=== PATIENT | male | born 1960 | race Caucasian/White ===

== ENCOUNTER 2016-08-20 09:46 | Emergency (ER) | payer MEDICAID ==
[~2016-08-20] VITALS: Ht 162.6 cm; Wt 64.0 kg
[~2016-08-20 09:46] MED LIST: ACET-2619 GT; BISA10SU27 RC; ESOM40PK GT; GLYC1TAB GT; LEVO0.173 GT; METO-460 GT; MIRABULK GT; [UNRECOGNIZED DRUG - CODE] GT
--- NOTE | 2016-08-20 09:46 | NUR ---
Patient BIBA to bed 5 at this time.
[2016-08-20 09:56] VITALS: BP 111/94
--- NOTE | 2016-08-20 10:00 | NUR ---
PT BIB EMS FROM [facility] WITH C/O COUGH CX 2 DAYS, WORSENING TODAY, PT BIB EMS WITH CONTINOUS [place] TX ALBUTEROL/ATROVENT, COUGH, GTUBE; STAVE MILL HAND DENIES N/V/D; SKIN IS PINK/WARM/DRY; AAOX4 WITH EVEN AND STEADY GAIT; LUNGS BL RHONCHI; HR EVEN AND REGULAR; PT DENIES ANY FEVER, OR CP AT THIS TIME; PATIENT STATES PAIN OF 0/10 AT THIS TIME; VSS; PATIENT POSITIONED FOR COMFORT; HOB ELEVATED; BEDRAILS UP X2; BED DOWN. ER MD MADE AWARE OF PT STATUS.
[2016-08-20] MEDS ORDERED: NACL 0.9% 1,000 ML IV SCH (10:03)
[2016-08-20] MEDS ORDERED: ALBUTEROL 0.083% 2.5 MG/3 ML NEBU INH ONE (10:15)
[2016-08-20] MEDS ORDERED: IPRATROPIUM 0.02% 0.5 MG/2.5 ML NEBU INH ONE (10:15)
[2016-08-20] MEDS ORDERED: NACL 0.9% 1,000 ML IV ONE ×2 (10:20→14:20)
[2016-08-20] MEDS ORDERED: PRO5 GT (10:29)
[2016-08-20] MEDS ORDERED: SYN.1 GT (10:29)
[2016-08-20] MEDS ORDERED: MULT9LIQ6 GT (10:29)
[2016-08-20 10:42] LABS: HEMATOCRIT 42.6 % (36-52); HEMOGLOBIN 13.7 g/dL (12.0-18.0); MEAN CORPUSCULAR HEMOGLOBIN 26 pg (27-31); MEAN CORPUSCULAR HGB CONC 32 g/dL (33-37); MEAN CORPUSCULAR VOLUME 82 fL (80-94); WHITE BLOOD COUNT (AUTO) 14.8 K/uL (4.8-10.8)
[2016-08-20 10:43] LABS: PLATELET COUNT (AUTO) 240 K/uL (140-450); RED CELL DISTRIBUTION WIDTH 14.8 % (11.6-13.7)
[2016-08-20 10:49] LABS: AMYLASE 48 U/L (25-115); ANION GAP 12.1 (8-16); CALCIUM 8.6 mg/dL (8.5-10.1); CARBON DIOXIDE 30.7 mmol/L (21-32); CREATININE 0.9 mg/dL (0.6-1.3); LIPASE 152 U/L (73-393); POTASSIUM 3.8 mmol/L (3.5-5.1)
[2016-08-20 10:51] LABS: BAND % (MANUAL) 2 % (0-8); EOSINOPHILS % (MANUAL) 1 % (0-4); LYMPHOCYTES % (MANUAL) 8 % (20-46); MONOCYTES % (MANUAL) 3 % (5-12); NEUTROPHILS % (MANUAL) 86 (43-65)
[2016-08-20 10:52] LABS: PLATELET ESTIMATE ADEQUATE
[2016-08-20 10:53] LABS: PARTIAL THROMBOPLASTIN TIME 24.3 secs (22-35.6); PROTHROMBIN TIME 9.9 secs (10.8-13.4)
--- NOTE | 2016-08-20 10:56 | NUR ---
ADMITTING DX: CONGESTION LOC AWAKE DOWNS SYNDROME LIFT MECHANIC ANDREINA AT BEDSIDE EDUCATION PROVIDED TO PATIENT AND LIFT MECHANIC WITH ACKNOWLEDGEMENT ON HHN THERAPY AND RESPIRATORY DRUGS HHN THERAPY GIVEN ORDERED STRONG MOIST NPC DURING THERAPY TOLERATED HHN THERAPY WELL WITHOUT INCIDENT PLACED PATIENT BACK ON SUPPLEMENTAL OXYGEN AT 2 LPM VIA NC
[2016-08-20 11:05] LABS: ALBUMIN 3.6 g/dL (3.4-5.0); TOTAL BILIRUBIN 0.4 mg/dL (0.0-1.0); TOTAL PROTEIN, SERUM 7.9 g/dL (6.4-8.2)
[2016-08-20 11:08] LABS: LACTIC ACID 3.8 mmol/L (0.4-2.0)
--- NOTE | 2016-08-20 11:19 | NUR ---
DR VAZQUEZ NOTIFIED OF LACTIC ACID 3.8, FLUIDS ORDERED AND GIVEN
[2016-08-20] MEDS ORDERED: cefTRIAXone 1,000 MG VIAL ONE (11:26)
[2016-08-20 11:29] LABS: APPEARANCE,URINE CLEAR (CLEAR); BILIRUBIN,URINE NEGATIVE (NEGATIVE); BLOOD, URINE NEGATIVE (NEGATIVE); COLOR,URINE YELLOW (YELLOW); LEUKOCYTE ESTERASE ,URINE NEGATIVE (NEGATIVE); NITRITE, URINE NEGATIVE (NEGATIVE); PH,URINE 6.5 (5.0-9.0); PROTEIN,URINE NEGATIVE (NEGATIVE); UGLUCOSE NEGATIVE (NEGATIVE); UROBILINOGEN,URINE 0.2 EU/dL (0.2 - 1)
[2016-08-20 16:16] VITALS: BP 119/80
--- NOTE | 2016-08-20 16:16 | NUR ---
Patient discharged with v/s stable. Written and verbal after care instructions given and explained. Patient alert, oriented and verbalized understanding of instructions. Wheel Chair Assisted with by caregiver. All questions addressed prior to discharge. ID band removed. Patient advised to follow up with PMD. Rx of ZITHROMAX, ALBUTEROL given. Patient educated on indication of medication including possible reaction and side effects. Opportunity to ask questions provided and answered.
== END 2016-08-20 16:16 | disposition home or self-care (01) ==
LOC: MED 09:46
DX: J40 Bronchitis, not specified as acute or chronic (principal); E11.9 Type 2 diabetes mellitus without complications; K21.9 Gastro-esophageal reflux disease without esophagitis; E03.5 Myxedema coma
CPT/HCPCS: 36415; 71010; 80053; 81003; 82150; 82553; 82948; 83605; 83690; 83880; 84484; 85025; 85379; 85610; 85730; 87040; 87086; 93005; 94640; 96361; 96365; 99285; J0696; J7030; J7060; J7613; J7644; Q0092; C1758

== ENCOUNTER 2018-05-17 12:35 | Inpatient (IN) | payer MEDICAID ==
[~2018-05-17] VITALS: Ht 175.3 cm; Wt 78.0 kg
[~2018-05-17 12:35] MED LIST changes: +BACTO TP; +CHLO118S2 TP; +LACT10CA GT; -LEVO0.173 GT; +MULT9LIQ6 GT; +NITR100C15 GT; +PHEN-1901 GT; +PRO5 GT; +SYN.1 GT; +ZGUARD TP
--- NOTE | 2018-05-17 12:35 | NUR ---
PATIENT TO BED#11 BY PARAMEDICS.
[2018-05-17 12:42] VITALS: BP 103/47
--- NOTE | 2018-05-17 12:53 | NUR ---
PATIENT PRESENTS TO ED WITH brought in by ems from a boarding home c/o fever x 3 days--pt unable to verbalized severe mental delay .; SKIN IS PINK/hot/DRY;;diminished breath sounds; HR EVEN AND REGULAR; PT PATIENT STATES PAIN OF 0/10 AT THIS TIME; VSS; PATIENT POSITIONED FOR COMFORT; HOB ELEVATED; BEDRAILS UP X2; BED DOWN. ER MD MADE AWARE OF PT STATUS.
[2018-05-17] MEDS ORDERED: NACL 0.9% 2,000 ML IV SCH (13:00)
[2018-05-17] MEDS ORDERED: PIPERACILLIN/TAZOBACTAM 3.375 GM in DEXT 5% MINI-BAG PLUS 50 ML IV ONE (13:00)
[2018-05-17] MEDS ORDERED: ALBUTEROL SULFATE/IPRATROPIU 3 ML SOL IH ONE (13:05)
--- NOTE | 2018-05-17 13:19 | NUR ---
rt at bedside--collected vbg breathing treatment initiated---lab collecting samples cxr at bedside
[2018-05-17] MEDS ORDERED: ONDA8TAB GT (13:33)
[2018-05-17] MEDS ORDERED: ALBU4TAB21 GT (13:33)
[2018-05-17] MEDS ORDERED: CARB15DR61 OT (13:33)
[2018-05-17] MEDS ORDERED: NA P133N1 RC (13:33)
[2018-05-17] MEDS ORDERED: [UNRECOGNIZED DRUG - CODE] GT (13:33)
[2018-05-17] MEDS ORDERED: RANI-485 GT (13:33)
[2018-05-17 13:36] LABS: BASOPHILS % (AUTO) 0.1 % (0.0-2.0); HEMATOCRIT 39.6 % (36-52); HEMOGLOBIN 12.7 g/dL (12.0-18.0); LYMPHOCYTES # (AUTO) 0.6 K/uL (2.0-11.5); LYMPHOCYTES % (AUTO) 3.1 % (20.5-51.1); MEAN CORPUSCULAR HEMOGLOBIN 28 pg (27-31); MEAN CORPUSCULAR HGB CONC 32 g/dL (33-37); MEAN CORPUSCULAR VOLUME 86.4 fL (80-94); MONOCYTES # (AUTO) 1.2 K/uL (0.8-1.0); MONOCYTES % (AUTO) 6.1 % (1.7-9.3); NEUTROPHILS # (AUTO) 17.6 K/uL (1.8-7.7); NEUTROPHILS % (AUTO) 90.7 % (42.2-75.2); PLATELET COUNT (AUTO) 148 K/uL (140-450); RED BLOOD CELL COUNT(AUTO) 4.58 MIL/uL (4.20-6.10); RED CELL DISTRIBUTION WIDTH 15.1 % (11.6-13.7); WHITE BLOOD COUNT (AUTO) 19.4 K/uL (4.8-10.8)
[2018-05-17 13:42] LABS: APPEARANCE,URINE HAZY (CLEAR); BILIRUBIN,URINE NEGATIVE (NEGATIVE); BLOOD, URINE TRACE-I (NEGATIVE); COLOR,URINE YELLOW (YELLOW); LEUKOCYTE ESTERASE ,URINE 1+ (NEGATIVE); NITRITE, URINE NEGATIVE (NEGATIVE); PH,URINE 6.5 (5.0-9.0); UGLUCOSE NEGATIVE (NEGATIVE)
[2018-05-17] MEDS ORDERED: PIPERACILLIN/TAZOBACTAM 3.375 GM VIAL IV ONE (13:42)
[2018-05-17 13:50] LABS: ACETONE, SERUM NEGATIVE (NEGATIVE)
[2018-05-17 13:51] LABS: ALBUMIN 3.2 g/dL (3.4-5.0); TOTAL BILIRUBIN 0.5 mg/dL (0.0-1.0)
[2018-05-17 13:55] LABS: RBC,URINE 0-5 (RARE) /HPF (0-5); WBC,URINE 60-80 /HPF (0-5)
[2018-05-17 13:56] LABS: MAGNESIUM 1.8 mg/dL (1.8-2.4); PROTHROMBIN TIME 10.3 secs (10.8-13.4)
[2018-05-17] MEDS ORDERED: LORazepam 2 MG/ML VIAL IM/IVP PRN (15:10)
[2018-05-17] MEDS ORDERED: NACL 0.9% 1,000 ML IV SCH (15:10)
[2018-05-17] MEDS ORDERED: HYDROcodone/APAP 5/325 MG 1 TAB TAB GT PRN (15:10)
[2018-05-17] MEDS ORDERED: ONDANSETRON 4 MG/2 ML VIAL IM/IVP PRN (15:10)
[2018-05-17] MEDS ORDERED: INFLUENZA VIRUS VACCINE QUAD 0.5 ML SYR IMVAC PRN (15:10)
--- NOTE | 2018-05-17 15:37 | NUR ---
PT TAKEN TO TELE FLOOR BY RN PORFIRIO AND EMT VIRGIE
--- NOTE | 2018-05-17 15:40 | NUR ---
RECEIVED BEDSIDE REPORT FROM ER NURSE. PATIENT IS AWAKE, ALERT AND ORIENTEDX1. NO SIGNS OF DISTRESS ON RA. PT IS APHASIC. [facility] REP PRESENT AT BEDSIDE. MRSA NARES DONE. VITALS WITHIN NORMAL LIMITS. PATIENT IS NOT AMBULATORY BUT TRANSFERS TO CHAIR WITH ASSISTANCE. FALL RISK PROTOCOL IN PLACE. SKIN INTACT. G-TUBE IN PLACE. FLUSHING WELL. IV ON L HAND 20G. CLEAN, DRY AND INTACT. BED IN LOW POSITION. CALL LIGHT WITHIN REACH. WILL CONTINUE TO MONITOR THE PATIENT.
--- NOTE | 2018-05-17 15:50 | NUR ---
Admited to Tele. Transported via fatoumata w/ RN and EMT at bedside; safety measures in place. Will go to room 107B. Belongings list completed. Report to Sarah DANIELLE.
[2018-05-17 16:00] VITALS: BP 98/56
[2018-05-17 16:02] LABS: PHOSPHORUS 2.3 mg/dL (2.5-4.9); THYROID STIMULATING HORMONE 2.18 uIU/mL (0.34-3.74)
[2018-05-17] MEDS ORDERED: ALBUTEROL SULFATE/IPRATROPIU 3 ML SOL IH PRN (16:15)
[2018-05-17] MEDS ORDERED: SODIUM PHOSPHATE 118 ML ENEM RC PRN (16:40)
[2018-05-17] MEDS ORDERED: BISACODYL 10 MG SUPP RC PRN (16:40)
[2018-05-17] MEDS ORDERED: NUTRITIONAL SUPPLEMENT GT SCH (17:00)
[2018-05-17] MEDS ORDERED: ALBUTEROL 4 MG TAB GT SCH (17:00)
--- NOTE | 2018-05-17 17:12 | NUR ---
PT SLEEPING IN BED. NO SIGNS OF DISTRESS OR SOB NOTED. WILL CONTINUE TO ROUND FREQUENTLY. BED IN LOW POSITION, CALL LIGHT WITHIN REACH
[2018-05-17] MEDS: DEXT 5% / NACL 0.45% 1,000 ML IV SCH (18:35)
--- NOTE | 2018-05-17 18:49 | NUR ---
PER [facility] FARM EQUIPMENT MECHANIC APPRENTICE, PT IS RECEIVING NUTRIN 2.O FORMULA FEEDING THROUGH HIS G-TUBE. PT REP STATED THAT 1 AND 1/2 CANS ARE GIVEN IN THE MORNING, 1 CAN FOR LUNCH, AND 1 CAN FOR DINNER.
[2018-05-17] MEDS ORDERED: SODIUM PHOS / POTASSIUM PHOS 1 PKT PDR GT SCH (19:00)
--- NOTE | 2018-05-17 19:10 | NUR ---
PLACED PT ON 2L NASAL CANNULA. SAO2 WAS 88% ON ROOM AIR. SAO2 93% ON 2L NASAL CANNULA.
--- NOTE | 2018-05-17 19:12 | NUR ---
SPOKE WITH XENIA, NO BAKE MOLDER, ABOUT PT PO ALBUTEROL NOT BEING AVAILABLE ON THE FLOOR. PER XENIA, MED IS NOT AVAILABLE IN PHARMACY.
--- NOTE | 2018-05-17 19:23 | NUR ---
ENDORSED PT TO PASTING MACHINE OPERATOR NURSE FOR CONTINUITY OF CARE. PT IN STABLE CONDITION AT THIS TIME.
[2018-05-17 19:57] VITALS: BP 98/46
[2018-05-17] MEDS: ACETAMINOPHEN 325 MG TAB GT PRN (20:37)
[2018-05-17] MEDS: FAMOTIDINE 20 MG TAB GT SCH (20:37)
--- NOTE | 2018-05-17 20:37 | NUR ---
TEMP 100.4. REMOVED BLANKETS ,COOLING MEASURES DONE AND TYLENOL 650MG GT GIVEN. WILL CONTINUE TO MONITOR.
[2018-05-17] MEDS ORDERED: CARBAMIDE PEROXIDE 6.5% OT 15 ML BTL BOTH EARS SCH (21:00)
--- NOTE | 2018-05-17 21:40 | NUR ---
TEMP RECHECKED 99.7 . WILL CONTINUE TO MONITOR.
--- NOTE | 2018-05-17 23:05 | NUR ---
PT SLEEPING AT THIS TIE. NO S/S OF ANY DISCOMFORT NOTED. WILL CONTINUE TO MONITOR.
[2018-05-18] MEDS: DEXT 5% / NACL 0.45% 1,000 ML IV SCH ×2 (00:40→03:28)
[2018-05-18 00:45] VITALS: BP 91/54
--- NOTE | 2018-05-18 00:45 | NUR ---
LATEST TEMP 97.9 NO S/S OF ANY DISCOMFORT NOR PAIN NOTED. WILL CONTINUE TO MONITOR.
--- NOTE | 2018-05-18 01:30 | NUR ---
CALLED DR. GOTTLIEB REGARDING DIET ORDER FOR PT. SHE SAID SHE WILL ASKED THE AM RESIDENTS LATER .
--- NOTE | 2018-05-18 02:00 | NUR ---
WITH OCCASIONAL NON PRODUCTIVE COUGH. NO S/S OF ANY DISTRESS NOTED.
[2018-05-18 03:40] VITALS: BP 92/53
--- NOTE | 2018-05-18 04:00 | NUR ---
@2200 RN ENDOSCOPY FOUND TO HAVE REDNESS AND EXCORIATION ON RT SIDE OF THE SCROTUM.INCONTINENT DERMATITIS. JUST TOOK PICTURE AT THIS TIME. DR. GOTTLIEB,RESIDENT MD MADE AWARE. WILL ORDER CREAM.
[2018-05-18] MEDS ORDERED: Z-GUARD PASTE TP PRN ×2 (04:35→08:46)
--- NOTE | 2018-05-18 05:40 | NUR ---
GT FEEDING STARTED WITH VITAL AF 1.2 AT 10ML /HR , ADVANCE 10ML Q4HRS , GOAL 40 ML /HR. WATER FLUSH 100ML Q4HR. Addendum: 05/18/18 at 0742 by Lillian Booth RN GT FEEDING STARTED AT 0640.
--- NOTE | 2018-05-18 06:12 | NUR ---
PATIENT HAS BEEN SCREENED AND CATEGORIZED LOW NUTRITION RISK. PATIENT WILL BE SEEN WITHIN 7 DAYS OF ADMISSION. 05/24/18 MARIAH KUMAR MS, RDN Addendum: 05/18/18 at [address] CORRECTION: PT HAS BEEN SCREENED AND CATEGORIZED HIGH NUTRITION RISK. PT WILL BE SEEN WITHIN 1-2 DAYS OF ADMISSION 05/18/18-05/19/18 MARIAH KUMAR MS, RDN
[2018-05-18] MEDS: GLYCOPYRROLATE 1 MG TAB GT SCH ×2 (06:19→16:12)
[2018-05-18] MEDS: LEVOTHYROXINE 0.025 MG, LEVOTHYROXINE 0.1 MG GT SCH ×2 (06:19)
--- NOTE | 2018-05-18 07:15 | NUR ---
ENDORSED PT IN STABLE CONDITION TO AM NURSE.
--- NOTE | 2018-05-18 07:23 | NUR ---
RECEIVED BEDSIDE REPORT FROM INDUSTRIAL ENGINEERING ANALYST RN CHRISTOPHE. PATIENT IS AWAKE, ALERT AND ORIENTEDX1. NO SIGNS OF DISTRESS ON RA. PT IS APHASIC. VITALS WITHIN NORMAL LIMITS FOR PT. PATIENT IS NOT AMBULATORY BUT TRANSFERS TO CHAIR WITH ASSISTANCE. FALL RISK PROTOCOL IN PLACE. SKIN INTACT. G-TUBE IN PLACE. FLUSHING WELL. IV SITE BLEEDING. IV WAS DISLODGED. WILL INSERT NEW IV. BED IN LOW POSITION. CALL LIGHT WITHIN REACH. WILL CONTINUE TO MONITOR THE PATIENT.
[2018-05-18 07:26] LABS: BASOPHILS % (AUTO) 0.1 % (0.0-2.0); EOSINOPHILS % (AUTO) 0.2 % (0.0-4.0); HEMATOCRIT 36.2 % (36-52); HEMOGLOBIN 11.6 g/dL (12.0-18.0); LYMPHOCYTES # (AUTO) 1.1 K/uL (2.0-11.5); LYMPHOCYTES % (AUTO) 7.7 % (20.5-51.1); MEAN CORPUSCULAR HEMOGLOBIN 28 pg (27-31); MEAN CORPUSCULAR HGB CONC 32 g/dL (33-37); MEAN CORPUSCULAR VOLUME 86.4 fL (80-94); MONOCYTES % (AUTO) 6.6 % (1.7-9.3); NEUTROPHILS # (AUTO) 12.7 K/uL (1.8-7.7); NEUTROPHILS % (AUTO) 85.4 % (42.2-75.2); PLATELET COUNT (AUTO) 126 K/uL (140-450); RED BLOOD CELL COUNT(AUTO) 4.19 MIL/uL (4.20-6.10); RED CELL DISTRIBUTION WIDTH 14.9 % (11.6-13.7); WHITE BLOOD COUNT (AUTO) 14.8 K/uL (4.8-10.8)
[2018-05-18 07:39] LABS: ANION GAP 7.7 (8-16); CREATININE 0.8 mg/dL (0.7-1.3); POTASSIUM 3.7 mmol/L (3.5-5.1)
[2018-05-18 07:46] LABS: CHOL/HDL RATIO 1.8 (1-4.5)
[2018-05-18 07:47] LABS: MAGNESIUM 1.7 mg/dL (1.8-2.4); PHOSPHORUS 1.9 mg/dL (2.5-4.9)
[2018-05-18 08:00] VITALS: BP 94/54
[2018-05-18] MEDS ORDERED: MAGNESIUM OXIDE 400 MG TAB GT ONE (08:40)
[2018-05-18] MEDS ORDERED: HYDRAGUARD CREAM TP PRN (08:40)
[2018-05-18] MEDS: NACL 0.9% 1,000 ML IV SCH ×2 (08:50→16:09)
--- NOTE | 2018-05-18 08:56 | NUR ---
INSERTED NEW IV FOR PT. NEW IV SITE IS LEFT FA 22 G. PATENT AND INTACT AND FLUSHING WELL.
[2018-05-18] MEDS ORDERED: FERROUS GLUC GT SCH (09:00)
[2018-05-18] MEDS ORDERED: SODIUM PHOS / POTASSIUM PHOS 1 PKT PDR GT SCH (09:00)
[2018-05-18] MEDS ORDERED: Z-GUARD PASTE TP SCH (09:00)
[2018-05-18] MEDS ORDERED: MAGNESIUM OXIDE 400 MG TAB GT SCH (09:00)
[2018-05-18] MEDS ORDERED: LEVOTHYROXINE 0.1 MG TAB GT SCH (09:00)
[2018-05-18] MEDS ORDERED: MULTIVIT MINERALS GT SCH (09:00)
[2018-05-18] MEDS ORDERED: [UNRECOGNIZED DRUG - OTHER] GT SCH (09:00)
--- NOTE | 2018-05-18 09:52 | NUR ---
PT SLEEPING IN BED. NO SIGNS OF DISTRESS OR SOB NOTED. WILL CONTINUE TO ROUND FREQUENTLY. BED IN LOW POSITION, CALL LIGHT WITHIN REACH
[2018-05-18] MEDS: FAMOTIDINE 20 MG TAB GT SCH ×2 (10:13→20:45)
[2018-05-18] MEDS: MULTIVITAMIN/MINERALS 1 TAB GT SCH (10:13)
--- NOTE | 2018-05-18 10:28 | NUR ---
(05/18/18) RD INITIAL ASSESSMENT COMPLETED PLEASE REFER TO NUTRITION ASSESSMENT UNDER CARE ACTIVITY FOR ESTIMATED NUTRITIONAL NEEDS. RD RECOMMENDATIONS: 1. CONTINUE ON VITAL AF 1.2. 2. CONTINUE TO INCREASE BY 10 ML Q4H TOLERATED UNTIL GOAL RATE OF 40 ML/HR IS REACHED. 3. IF PATIENT CONTINUES TO TOLERATE ENTERAL FEEDINGS & REACHES GOAL RATE OF 40 ML/HR, CONSIDER INCREASING GOAL RATE TO 55 ML/HR TO BETTER MEET EST KCAL NEEDS. (AT 55 ML/HR, TF WILL PROVIDE 1320 ML, 1584 KCAL, 99 GM PROTEIN, AND 1070 ML FREE WATER TO MEETING 80% EST KCAL AND > 100% EST PROTEIN NEEDS). 4. RD WILL F/U 2-3 DAYS; HIGH RISK. JAZZMINE KUMAR, MS, RDN
--- NOTE | 2018-05-18 11:20 | NUR ---
PT RESTING IN BED. NO SIGNS OF DISTRESS OR SOB NOTED. WILL CONTINUE TO ROUND FREQUENTLY. BED IN LOW POSITION, CALL LIGHT WITHIN REACH
[2018-05-18] MEDS: Z-GUARD PASTE TP SCH ×2 (11:31→20:45)
[2018-05-18 12:00] VITALS: BP 92/54
--- NOTE | 2018-05-18 13:02 | NUR ---
PT SLEEPING IN BED. NO SIGNS OF DISTRESS OR SOB NOTED. WILL CONTINUE TO ROUND FREQUENTLY. BED IN LOW POSITION, CALL LIGHT WITHIN REACH. ALL NEEDS MET AT THIS TIME.
[2018-05-18] MEDS: HYDRAGUARD CREAM TP SCH (14:47)
[2018-05-18 16:00] VITALS: BP 109/54
[2018-05-18] MEDS: ACETAMINOPHEN 325 MG TAB GT PRN (16:12)
[2018-05-18] MEDS: ALBUTEROL SULFATE/IPRATROPIU 3 ML SOL IH SCH ×2 (16:12→18:40)
--- NOTE | 2018-05-18 16:12 | NUR ---
PT EXPERIENCING FEVER OF 100.6. TYLENOL GIVEN. WILL REASSESS FOR MED EFFECTIVENESS.
--- NOTE | 2018-05-18 16:12 | NUR ---
CALLED TO PTS ROOM FOR 1300 BREATHING TX. PTS TXS WERE PRN THE CHANGE WAS MADE BY DR. VASQUEZ AND PHARMACY DID NOT NOTIFIED RESPIRATORY OF CHANGES MADE. PT IS VERY COMBATIVE WOULD NOT ALLOW RT TO PLACE PULSE OX ON FINGER WAS TRYING TO HIT AND LOLIS BARDALES AT BEDSIDE NO TX WAS GIVEN
--- NOTE | 2018-05-18 19:32 | NUR ---
RECEIVED REPORT FROM DAY SHIFT FROM DAY SHIFT NURSE, CATIA AT PT BEDSIDE. PT IS AWAKE AND APHASIAC. PT IS ON RA WITH RESPIRATIONS EVEN AND UNLABORED. IV ACCESS IN L FA 22G WITH IVF RUNNING PER MD ORDERS. IV IS PATENT AND INTACT. PT HAS REDNESS TO SCROTAL AREA BUT SKIN IS INTACT. PT HAS G-TUBE WITH VITAL AF FEEDING INFUSING 40ML/HR WITH 100ML H20 FLUSH Q4H. FLACC-0. BED IS LOCKED, LOW POSITION WITH SIDE RAILS UP X2. CALL LIGHT IS WITHIN REACH. BOARD UPDATED. WILL CONTINUE TO MONITOR.
--- NOTE | 2018-05-18 19:55 | NUR ---
ENDORSED PT TO NON PROFIT DIRECTOR RADHA CONTINUITY OF CARE. PT IN STABLE CONDITION.
[2018-05-18 20:00] VITALS: BP 88/48
--- NOTE | 2018-05-18 20:52 | NUR ---
RESIDUALS CHECKED, 5ML. ADMINISTERED SCHEDULED MEDICATION. PT HAD SM BM. PT CHANGED, CLEANED AND TURNED. Z-GUARD APPLIED. PT TOLERATED WELL. NO SIGNS OR SYMPTOMS OF DISTRESS. WILL CONTINUE TO MONITOR.
--- NOTE | 2018-05-18 23:32 | NUR ---
RESIDUALS CHECKED, 5ML. TUBE FEEDING INCREASED TO 50ML/HR PER ORDERS. PT HAS NO SIGNS OR SYMPTOMS OF DISTRESS. FLACC-0. WILL CONTINUE TO MONITOR.
[2018-05-19] VITALS: BP 98/55
[2018-05-19] MEDS: HYDRAGUARD CREAM TP SCH ×2 (00:34→13:33)
--- NOTE | 2018-05-19 01:50 | NUR ---
PT RESTING COMFORTABLY IN BED. FLACC-0. NO S/S OF DISTRESS. WILL CONTINUE TO MONITOR.
[2018-05-19] MEDS: ACETAMINOPHEN 325 MG TAB GT PRN ×2 (04:23→17:23)
--- NOTE | 2018-05-19 04:23 | NUR ---
TEMPERATURE 100.5, TYLENOL GIVEN. PT WOULD NOT ALLOW ME TO TAKE ANY OTHER VITAL SIGNS AND BECAME AGITATED. RESIDUALS CHECKED, 0ML. TUBE FEEDING INCREASED TO GOAL RATE OF 55ML/HR PER MD ORDERS. PT HAS NO S/S OF DISTRESS. WILL CONTINUE TO MONITOR.
[2018-05-19] MEDS: NACL 0.9% 1,000 ML IV SCH ×2 (04:28→17:24)
--- NOTE | 2018-05-19 05:00 | NUR ---
NEW TUBE FEEDING STARTED. TEMPERATURE NOW 99.7. FLACC-0. NO S/S OF DISTRESS. WILL CONTINUE TO MONITOR.
[2018-05-19] MEDS: ALBUTEROL SULFATE/IPRATROPIU 3 ML SOL IH SCH ×4 (06:27→18:53)
[2018-05-19] MEDS: GLYCOPYRROLATE 1 MG TAB GT SCH ×2 (06:33→17:22)
[2018-05-19] MEDS: LEVOTHYROXINE 0.025 MG, LEVOTHYROXINE 0.1 MG GT SCH ×2 (06:33)
--- NOTE | 2018-05-19 06:33 | NUR ---
ADMINISTERED SCHEDULED MEDICATIONS. PT TOLERATED WELL. NO S/S OF DISTRESS. WILL CONTINUE TO MONITOR.
--- NOTE | 2018-05-19 07:24 | NUR ---
ENDORSED PT TO DAY SHIFT NURSE FOR CONTINUITY OF CARE. PT IN STABLE CONDITION.
--- NOTE | 2018-05-19 07:30 | NUR ---
RECEIVED PT ON BED AWAKE, ALERT, APHASIC, CONFUSED, HX MENTAL RETARDATION/CEREBRAL PALSY. NO SOB NOTED, NO SIGN SIGNS OF PAIN. IV TO LT FOREARM PATENT AND INTACT. CHEST, DIMINISHED AIR ENTRY TO THE BASES. ABDOMEN SOFT, BOWEL SOUNDS PRESENT, WITH G-TUBE IN PLACE, RESIDUAL 10 MLS NOTED. SCD'S IN PLACE. BED ON LOWEST POSITION, BED ALARM ON, CALL LIGHT WITHIN REACH. WILL REPOSITION PT EVERY 2 HRS.
[2018-05-19 07:34] LABS: ANION GAP 11.7 (8-16); CREATININE 0.7 mg/dL (0.7-1.3); MAGNESIUM 1.7 mg/dL (1.8-2.4); PHOSPHORUS 2.4 mg/dL (2.5-4.9); POTASSIUM 3.7 mmol/L (3.5-5.1)
[2018-05-19] MEDS ORDERED: SODIUM PHOS / POTASSIUM PHOS 1 PKT PDR PO SCH (07:57)
[2018-05-19 08:00] VITALS: BP 96/58
[2018-05-19] MEDS ORDERED: MAG SULF 2000 MG/WATER PREMIX 50 ML IV SCH (08:00)
[2018-05-19 08:49] LABS: BASOPHILS % (AUTO) 0.4 % (0.0-2.0); EOSINOPHILS # (AUTO) 0.1 K/uL (0-0.4); EOSINOPHILS % (AUTO) 1.6 % (0.0-4.0); HEMATOCRIT 34.6 % (36-52); HEMOGLOBIN 11.3 g/dL (12.0-18.0); LYMPHOCYTES # (AUTO) 0.8 K/uL (2.0-11.5); LYMPHOCYTES % (AUTO) 11.4 % (20.5-51.1); MEAN CORPUSCULAR HEMOGLOBIN 28 pg (27-31); MEAN CORPUSCULAR HGB CONC 33 g/dL (33-37); MEAN CORPUSCULAR VOLUME 86.2 fL (80-94); MONOCYTES # (AUTO) 0.5 K/uL (0.8-1.0); MONOCYTES % (AUTO) 6.7 % (1.7-9.3); NEUTROPHILS # (AUTO) 5.9 K/uL (1.8-7.7); NEUTROPHILS % (AUTO) 79.9 % (42.2-75.2); PLATELET COUNT (AUTO) 109 K/uL (140-450); RED BLOOD CELL COUNT(AUTO) 4.01 MIL/uL (4.20-6.10); RED CELL DISTRIBUTION WIDTH 14.7 % (11.6-13.7); WHITE BLOOD COUNT (AUTO) 7.4 K/uL (4.8-10.8)
[2018-05-19] MEDS ORDERED: POLYETHYLENE GLYCOL 17 GM/PKT GT SCH (09:00)
--- NOTE | 2018-05-19 09:45 | NUR ---
SCHEDULED MEDS GIVEN THRU G-TUBE, GASTRIC RESIDUAL 15 MLS NOTED. G-FEEDING AND MEDICATIONS TOLERATED WELL.
[2018-05-19] MEDS: FAMOTIDINE 20 MG TAB GT SCH ×2 (09:47→20:50)
[2018-05-19] MEDS: MULTIVITAMIN/MINERALS 1 TAB GT SCH (09:47)
[2018-05-19] MEDS: Z-GUARD PASTE TP SCH ×2 (09:48→20:51)
--- NOTE | 2018-05-19 11:00 | NUR ---
JIM, INSULATING MACHINE OPERATOR OF PT'S BOARD AND CARE CAME TO VISIT, NOTIFIED WITH PT'S PLAN OF CARE. VERBALIZED UNDERSTANDING.
--- NOTE | 2018-05-19 15:28 | NUR ---
CM NOTE CHART REVIEW DONE
[2018-05-19 16:00] VITALS: BP 104/60
--- NOTE | 2018-05-19 17:00 | NUR ---
PT TOLERATED G-TUBE FEEDING WELL. GASTRIC RESIDUAL 10-15 MLS NOTED.
--- NOTE | 2018-05-19 19:00 | NUR ---
PT AWAKE. NO SOB NOTED. NO SIGNS OF PAIN. ENDORSED TO NEXT SHIFT NURSE FOR CONTINUITY OF CARE.
--- NOTE | 2018-05-19 19:30 | NUR ---
RECEIVED REPORT FROM DAY SHIFT FROM DAY SHIFT NURSEBALAJI AT PT BEDSIDE. PT IS AWAKE AND APHASIAC. PT IS ON RA WITH RESPIRATIONS EVEN AND UNLABORED. IV ACCESS IN L FA 22G WITH IVF RUNNING PER MD ORDERS. IV IS PATENT AND INTACT. PT HAS REDNESS TO SCROTAL AREA BUT SKIN IS INTACT. PT HAS G-TUBE WITH VITAL AF FEEDING INFUSING 55ML/HR WITH 100ML H20 FLUSH Q4H. FLACC-0. BED IS LOCKED, LOW POSITION WITH SIDE RAILS UP X2. CALL LIGHT IS WITHIN REACH. BOARD UPDATED. WILL CONTINUE TO MONITOR.
--- NOTE | 2018-05-19 20:51 | NUR ---
ADMINISTERED SCHEDULED MEDICATIONS. RESIDUALS CHECKED, 5ML. PT RESTING COMFORTABLY IN BED. NO SIGNS OR SYMPTOMS OF DISTRESS. WILL CONTINUE TO MONITOR.
[2018-05-20] VITALS: BP 103/67
--- NOTE | 2018-05-20 00:11 | NUR ---
VS WNL. PT ASLEEP IN BED. NO SIGNS OR SYMPTOMS OF DISTRESS. WILL CONTINUE TO MONITOR.
[2018-05-20] MEDS: HYDRAGUARD CREAM TP SCH ×2 (01:08→13:00)
--- NOTE | 2018-05-20 01:35 | NUR ---
RESIDUALS CHECKED, 0ML. NEW BOTTLE OF TUBE FEEDING STARTED.
[2018-05-20] MEDS: NACL 0.9% 1,000 ML IV SCH (02:00)
--- NOTE | 2018-05-20 02:00 | NUR ---
NEW BAG OF IVF STARTED.
[2018-05-20] MEDS: ALBUTEROL SULFATE/IPRATROPIU 3 ML SOL IH SCH ×3 (05:17→13:00)
[2018-05-20] MEDS: GLYCOPYRROLATE 1 MG TAB GT SCH (06:31)
[2018-05-20] MEDS: LEVOTHYROXINE 0.025 MG, LEVOTHYROXINE 0.1 MG GT SCH ×2 (06:31)
--- NOTE | 2018-05-20 06:31 | NUR ---
ADMINISTERED SCHEDULED MEDICATIONS. PT TOLERATED WELL. NO SIGNS OR SYMPTOMS OF DISTRESS. WILL CONTINUE TO MONITOR.
--- NOTE | 2018-05-20 06:47 | NUR ---
pt combative would no allow for assessment or breathing tx was trying to hit rt. notified elvia green concerning pt no hhn given pt was not in any distress at this time
--- NOTE | 2018-05-20 07:24 | NUR ---
ENDORSED PT TO DAY SHIFT NURSE FOR CONTINUITY OF CARE. PT IN STABLE CONDITION.
--- NOTE | 2018-05-20 07:30 | NUR ---
RECEIVED PT ON BED AWAKE, ALERT, APHASIC, CONFUSED, HX MENTAL RETARDATION/CEREBRAL PALSY. NO SOB NOTED, NO SIGNS OF PAIN AT THIS TIME. IV TO LT FOREARM PATENT AND INTACT. CHEST, DIMINISHED AIR ENTRY TO THE BASES. ABDOMEN SOFT, BOWEL SOUNDS PRESENT, WITH G-TUBE IN PLACE, RESIDUAL 10-15 MLS NOTED. SCD'S IN PLACE. BED ON LOWEST POSITION, BED ALARM ON, CALL LIGHT WITHIN REACH. WILL REPOSITION PT EVERY 2 HRS.
[2018-05-20 08:00] VITALS: BP 103/65
--- NOTE | 2018-05-20 09:00 | NUR ---
PT RESTING. NO SOB NOTED. NO SIGNS OF PAIN.
[2018-05-20] MEDS: Z-GUARD PASTE TP SCH (09:18)
[2018-05-20] MEDS: FAMOTIDINE 20 MG TAB GT SCH (09:18)
[2018-05-20] MEDS: MULTIVITAMIN/MINERALS 1 TAB GT SCH (09:18)
--- NOTE | 2018-05-20 10:55 | NUR ---
DISCHARGE PHOTO TAKEN AND DOCUMENTED.
[2018-05-20] MEDS ORDERED: LACT10CA1 GT (11:00)
[2018-05-20] MEDS ORDERED: SULF-59 PO (11:00)
[2018-05-20 11:21] LABS: BASOPHILS % (AUTO) 0.6 % (0.0-2.0); EOSINOPHILS # (AUTO) 0.1 K/uL (0-0.4); EOSINOPHILS % (AUTO) 3.5 % (0.0-4.0); HEMATOCRIT 36.2 % (36-52); HEMOGLOBIN 11.7 g/dL (12.0-18.0); LYMPHOCYTES # (AUTO) 0.7 K/uL (2.0-11.5); LYMPHOCYTES % (AUTO) 16.8 % (20.5-51.1); MEAN CORPUSCULAR HEMOGLOBIN 28 pg (27-31); MEAN CORPUSCULAR HGB CONC 32 g/dL (33-37); MEAN CORPUSCULAR VOLUME 85.9 fL (80-94); MONOCYTES # (AUTO) 0.4 K/uL (0.8-1.0); MONOCYTES % (AUTO) 10.7 % (1.7-9.3); NEUTROPHILS # (AUTO) 2.7 K/uL (1.8-7.7); NEUTROPHILS % (AUTO) 68.4 % (42.2-75.2); PLATELET COUNT (AUTO) 135 K/uL (140-450); RED BLOOD CELL COUNT(AUTO) 4.21 MIL/uL (4.20-6.10); RED CELL DISTRIBUTION WIDTH 14.6 % (11.6-13.7)
[2018-05-20 11:32] LABS: ANION GAP 11.2 (8-16); CARBON DIOXIDE 28.9 mmol/L (21-32); CREATININE 0.7 mg/dL (0.7-1.3); POTASSIUM 4.1 mmol/L (3.5-5.1)
[2018-05-20 11:40] LABS: MAGNESIUM 1.9 mg/dL (1.8-2.4); PHOSPHORUS 2.6 mg/dL (2.5-4.9)
--- NOTE | 2018-05-20 11:55 | NUR ---
CALLED JIM -CHANGE MANAGEMENT FACILITATOR OF [facility] [facility], NOTIFIED OF THE DISCHARGE ORDER. JIM STATED PT WILL BE PICKED UP LATER THIS AFTERNOON. SHE STATED SHE WILL CALL ME BACK FOR THE ETA.
[2018-05-20 12:00] VITALS: BP 101/56
--- NOTE | 2018-05-20 13:31 | NUR ---
PT COMBATIVE WOULD NOT ALLOW BREATHING TRYING TO HIT RT NO SIGNS OF DISTRESS NOTED AT THIS TIME
--- NOTE | 2018-05-20 14:30 | NUR ---
JIM CALLED BACK STATED THE ETA FOR PT'S TRANSPORTATION IS PAST 3 PM TODAY.
[2018-05-20 16:00] VITALS: BP 118/60
--- NOTE | 2018-05-20 17:02 | NUR ---
MADE A FOLLOW UP CALL TO [facility] AND SPOKE WITH CARTER, STATED PT'S TRANSPORTATION IS ON ITS WAY. CARTER ALSO UPDATED THEIR E-PHARMACY, THEY ARE WITH [facility] IN [place] NOT [facility]. DR. LORA NOTIFIED.
--- NOTE | 2018-05-20 17:30 | NUR ---
DISCHARGE INSTRUCTIONS GIVEN TO [place] PT'S AUTOMATION OPERATOR WHICH VERBALIZED FULL UNDERSTANDING OF THE INSTRUCTIONS GIVEN AND THE NEED TO FOLLOW UP WITH PT'S PCP TOMORROW AT 100A HRS. ARM BANDS AND IV REMOVED, CANNULA TIP INTACT. G-TUBE CLAMPED AND SECURED.
--- NOTE | 2018-05-20 17:40 | NUR ---
PT WHEELED OUT TO THE PARKING LOT IN STABLE CONDITION. NO SOB NOTED. NO COMPLAINTS MADE. PT IS D/C BACK TO [facility].
== END 2018-05-20 17:40 | disposition home or self-care (01) | DRG 720 ==
LOC: MED 12:35 → MTU 15:19
PROVIDERS: ADMIT General Practice; ATTEND General Practice
DX: A41.9 Sepsis, unspecified organism (principal); I95.9 Hypotension, unspecified; F72 Severe intellectual disabilities; E44.0 Moderate protein-calorie malnutrition; E83.39 Other disorders of phosphorus metabolism; E83.42 Hypomagnesemia; R13.10 Dysphagia, unspecified; F79 Unspecified intellectual disabilities; N39.0 Urinary tract infection, site not specified; K21.9 Gastro-esophageal reflux disease without esophagitis; E03.9 Hypothyroidism, unspecified; J45.909 Unspecified asthma, uncomplicated; E66.3 Overweight; G80.9 Cerebral palsy, unspecified; K59.09 Other constipation; B96.4 Proteus (mirabilis) (morganii) as the cause of diseases classified elsewhere; Z68.25 Body mass index [BMI] 25.0-25.9, adult; Z71.3 Dietary counseling and surveillance; Z88.1 Allergy status to other antibiotic agents; Z93.1 Gastrostomy status
CPT/HCPCS: 36415; 36600; 71045; 80048; 80053; 81001; 82009; 82803; 83036; 83605; 83690; 83735; 83880; 84100; 84134; 84443; 84484; 85025; 85610; 85730; 87040; 87081; 87086; 87186; 87804; 93005; 94640; 96361; 96365; 99285; J0696; J2543; J3475; J7030; J7060; J7620

== ENCOUNTER 2020-04-11 12:30 | Emergency (ER) | payer MEDICAID ==
[~2020-04-11] VITALS: Ht 152.4 cm; Wt 59.0 kg
[~2020-04-11 12:30] MED LIST changes: +ALBU-150 GT; -BACTO TP; -CHLO118S2 TP; -ESOM40PK GT; -LACT10CA GT; +LACT10CA1 GT; -METO-460 GT; +NA P133N1 RC; -NITR100C15 GT; +ONDA8TAB87 GT; -PHEN-1901 GT; -PRO5 GT; +RANI-745 GT; +SULF-59 PO; -ZGUARD TP; +[UNRECOGNIZED DRUG - CODE] GT; -[UNRECOGNIZED DRUG - CODE] GT
--- NOTE | 2020-04-11 12:30 | NUR ---
David NOEL from SNF, triaged by RN.
--- NOTE | 2020-04-11 12:32 | NUR ---
Dr. Justin is evaluating the patient at bedside.
[2020-04-11 12:37] VITALS: BP 117/64
--- NOTE | 2020-04-11 12:40 | NUR ---
RECEIVED A 59/M FROM EMS FOR G-TUBE PLACEMENT. PER EMS STAFF TUBE WAS REMOVED EARLIER THIS AM. GTUBE 20FR REPLACED BY DR TOBAR AT BEDSIDE. PT TOLERAED WELL. PENDING XRAY CONFIRMATION.
--- NOTE | 2020-04-11 13:00 | NUR ---
bindery library technical assistant at bedside.
--- NOTE | 2020-04-11 13:05 | NUR ---
XRAY COMPLETE. CONFIRMATION BY DR. TOBAR OF TUBE PLACEMENT.
--- NOTE | 2020-04-11 13:05 | NUR ---
REPORT GIVEN TO ALDAIR AT BOARD AND CARE FACILITY. ALL QUESTIONS ANSWERED.
[2020-04-11 13:17] VITALS: BP 117/64
--- NOTE | 2020-04-11 13:18 | NUR ---
Patient discharged with v/s stable. Written and verbal after care instructions given and explained. Patient alert, oriented and verbalized understanding of instructions. Ambulatory with steady gait. All questions addressed prior to discharge. ID band removed. Patient advised to follow up with PMD.
== END 2020-04-11 13:18 ==
LOC: MED 12:30
DX: K94.23 Gastrostomy malfunction (principal); J45.909 Unspecified asthma, uncomplicated; K21.9 Gastro-esophageal reflux disease without esophagitis; E07.9 Disorder of thyroid, unspecified; Z88.1 Allergy status to other antibiotic agents; Z98.890 Other specified postprocedural states; Z79.899 Other long term (current) drug therapy
CPT/HCPCS: 99283

== ENCOUNTER 2020-12-15 09:38 | Emergency (ER) | payer MEDICAID ==
[~2020-12-15] VITALS: Ht 152.4 cm; Wt 70.8 kg
[2020-12-15 09:44] VITALS: BP 119/79
--- NOTE | 2020-12-15 13:00 | NUR ---
Patient discharged with v/s stable. Written and verbal after care instructions given and explained. Patient verbalized understanding. Wheelchair assisted out to car. All questions addressed prior to discharge. Advised to follow up with PMD.
== END 2020-12-15 13:00 | disposition home or self-care (01) ==
LOC: MED 09:38
DX: L98.9 Disorder of the skin and subcutaneous tissue, unspecified (principal); J45.909 Unspecified asthma, uncomplicated; K21.9 Gastro-esophageal reflux disease without esophagitis; E07.9 Disorder of thyroid, unspecified; Z88.1 Allergy status to other antibiotic agents; Z79.899 Other long term (current) drug therapy
CPT/HCPCS: 99284

== ENCOUNTER 2021-04-08 15:34 | Inpatient (IN) | payer MEDICAID, SELFPAY ==
[~2021-04-08] VITALS: Ht 165.1 cm; Wt 68.9 kg
[2021-04-08] MEDS ORDERED: cefTRIAXone 1,000 MG in DEXT 5% MINI-BAG PLUS 50 ML IV ONE (15:35)
[2021-04-08 15:37] VITALS: BP 102/68
[2021-04-08] MEDS ORDERED: cefTRIAXone 1,000 MG VIAL ONE (15:44)
[2021-04-08 16:21] LABS: BASOPHILS % (AUTO) 0.2 % (0.0-2.0); EOSINOPHILS # (AUTO) 0.1 K/uL (0-0.4); EOSINOPHILS % (AUTO) 1.3 % (0.0-4.0); HEMATOCRIT 39.5 % (36-52); HEMOGLOBIN 13.4 g/dL (12.0-18.0); LYMPHOCYTES % (AUTO) 13.8 % (20.5-51.1); MEAN CORPUSCULAR HEMOGLOBIN 28 pg (27-31); MEAN CORPUSCULAR HGB CONC 34 g/dL (33-37); MEAN CORPUSCULAR VOLUME 83.4 fL (80-94); MONOCYTES # (AUTO) 0.7 K/uL (0.8-1.0); MONOCYTES % (AUTO) 9.8 % (1.7-9.3); NEUTROPHILS # (AUTO) 5.3 K/uL (1.8-7.7); NEUTROPHILS % (AUTO) 74.9 % (42.2-75.2); PLATELET COUNT (AUTO) 201 K/uL (140-450); RED BLOOD CELL COUNT(AUTO) 4.73 MIL/uL (4.20-6.10); WHITE BLOOD COUNT (AUTO) 7.1 K/uL (4.8-10.8)
[2021-04-08 16:38] LABS: ALBUMIN 3.3 g/dL (3.4-5.0); ANION GAP 5.7 (8-16); CARBON DIOXIDE 27.4 mmol/L (21-32); CREATININE 0.7 mg/dL (0.6-1.3); POTASSIUM 4.1 mmol/L (3.5-5.1)
[2021-04-08 16:43] LABS: APPEARANCE,URINE CLEAR (CLEAR); BILIRUBIN,URINE NEGATIVE (NEGATIVE); BLOOD, URINE TRACE-I (NEGATIVE); COLOR,URINE YELLOW (YELLOW); LEUKOCYTE ESTERASE ,URINE 2+ (NEGATIVE); NITRITE, URINE NEGATIVE (NEGATIVE); PH,URINE 6.5 (5.0-9.0); UGLUCOSE NEGATIVE (NEGATIVE)
[2021-04-08] MEDS ORDERED: ZINC113C4 TP (16:46)
[2021-04-08] MEDS ORDERED: FAMO-92 GT (16:46)
[2021-04-08] MEDS ORDERED: MAGN400S60 GT (16:46)
[2021-04-08] MEDS ORDERED: DEXT 5% / NACL 0.45% 1,000 ML IV SCH (16:55)
[2021-04-08 17:01] LABS: FINE GRANULAR CASTS,URINE 0-10 /LPF (None Seen); HYALINE CASTS, URINE 0-10 /LPF (None Seen)
[2021-04-08 17:45] VITALS: BP 120/72
[2021-04-08 17:56] LABS: TOTAL BILIRUBIN 0.4 mg/dL (0.0-1.0)
[2021-04-08 20:00] VITALS: BP 117/72
[2021-04-08] MEDS ORDERED: ONDANSETRON 4 MG/2 ML VIAL IVP PRN (22:45)
[2021-04-08] MEDS ORDERED: SODIUM PHOSPHATE 118 ML ENEM RC PRN (22:45)
[2021-04-08] MEDS ORDERED: MAGNESIUM HYDROXIDE 2400 MG/30 ML UDC GT SCH (22:45)
[2021-04-08] MEDS ORDERED: METOCLOPRAMIDE 10 MG/2 ML INJ VIAL IVP PRN (22:45)
[2021-04-08] MEDS ORDERED: bisacodyL 10 MG SUPP RC PRN (22:45)
[2021-04-08] MEDS ORDERED: ZINC OXIDE TP SCH (22:45)
[2021-04-08] MEDS ORDERED: LORazepam 2 MG/ML VIAL IVP PRN (22:45)
[2021-04-08] MEDS ORDERED: ACETAMINOPHEN 325 MG TAB GT PRN (22:45)
[2021-04-08] MEDS ORDERED: ALBUTEROL 0.083% 2.5 MG/3 ML NEBU INH PRN (22:45)
[2021-04-08] MEDS: DEXT 5% / NACL 0.45% 1,000 ML IV SCH (22:45)
[2021-04-09 04:00] VITALS: BP 100/67
[2021-04-09 06:37] LABS: BASOPHILS % (AUTO) 0.5 % (0.0-2.0); EOSINOPHILS # (AUTO) 0.1 K/uL (0-0.4); HEMATOCRIT 39.4 % (36-52); HEMOGLOBIN 13.1 g/dL (12.0-18.0); LYMPHOCYTES # (AUTO) 0.9 K/uL (2.0-11.5); MEAN CORPUSCULAR HEMOGLOBIN 28 pg (27-31); MEAN CORPUSCULAR HGB CONC 33 g/dL (33-37); MEAN CORPUSCULAR VOLUME 83.9 fL (80-94); MONOCYTES # (AUTO) 0.7 K/uL (0.8-1.0); MONOCYTES % (AUTO) 9.8 % (1.7-9.3); NEUTROPHILS # (AUTO) 4.9 K/uL (1.8-7.7); NEUTROPHILS % (AUTO) 73.7 % (42.2-75.2); PLATELET COUNT (AUTO) 201 K/uL (140-450); RED BLOOD CELL COUNT(AUTO) 4.69 MIL/uL (4.20-6.10); RED CELL DISTRIBUTION WIDTH 15.1 % (11.6-13.7); WHITE BLOOD COUNT (AUTO) 6.7 K/uL (4.8-10.8)
[2021-04-09 06:46] LABS: ANION GAP 8.6 (8-16); CARBON DIOXIDE 31.6 mmol/L (21-32); CREATININE 0.8 mg/dL (0.6-1.3); POTASSIUM 4.2 mmol/L (3.5-5.1)
[2021-04-09 06:48] LABS: MAGNESIUM 1.9 mg/dL (1.8-2.4); PHOSPHORUS 3.5 mg/dL (2.5-4.9)
[2021-04-09 08:00] VITALS: BP 129/73
[2021-04-09] MEDS: FAMOTIDINE 20 MG/2 ML VIAL IV SCH ×2 (08:51→21:00)
[2021-04-09] MEDS: DEXT 5% / NACL 0.45% 1,000 ML IV SCH ×2 (08:52→16:14)
[2021-04-09] MEDS: LEVOTHYROXINE 0.025 MG TAB GT SCH (08:57)
[2021-04-09] MEDS: GLYCOPYRROLATE 1 MG TAB GT SCH ×2 (08:57→21:00)
[2021-04-09] MEDS: LEVOTHYROXINE 0.1 MG TAB GT SCH (08:57)
[2021-04-09] MEDS ORDERED: GLYCOPYRROLATE 1 MG GT SCH (09:00)
[2021-04-09] MEDS ORDERED: NUTRITIONAL SUPPLEMENT GT SCH (09:00)
[2021-04-09] MEDS ORDERED: LEVOTHYROXINE 0.1 MG TAB GT SCH (09:00)
[2021-04-09 20:00] VITALS: BP 106/67
[2021-04-10 04:00] VITALS: BP 106/67
[2021-04-10] MEDS: DEXT 5% / NACL 0.45% 1,000 ML IV SCH ×2 (05:04→15:23)
[2021-04-10 06:19] LABS: BASOPHILS % (AUTO) 0.3 % (0.0-2.0); EOSINOPHILS # (AUTO) 0.2 K/uL (0-0.4); EOSINOPHILS % (AUTO) 3.2 % (0.0-4.0); HEMATOCRIT 38.3 % (36-52); HEMOGLOBIN 12.8 g/dL (12.0-18.0); LYMPHOCYTES # (AUTO) 1.3 K/uL (2.0-11.5); LYMPHOCYTES % (AUTO) 22.7 % (20.5-51.1); MEAN CORPUSCULAR HEMOGLOBIN 28 pg (27-31); MEAN CORPUSCULAR HGB CONC 33 g/dL (33-37); MEAN CORPUSCULAR VOLUME 84.1 fL (80-94); MONOCYTES # (AUTO) 0.6 K/uL (0.8-1.0); MONOCYTES % (AUTO) 11.1 % (1.7-9.3); NEUTROPHILS # (AUTO) 3.6 K/uL (1.8-7.7); NEUTROPHILS % (AUTO) 62.7 % (42.2-75.2); PLATELET COUNT (AUTO) 191 K/uL (140-450); RED BLOOD CELL COUNT(AUTO) 4.55 MIL/uL (4.20-6.10); RED CELL DISTRIBUTION WIDTH 14.8 % (11.6-13.7); WHITE BLOOD COUNT (AUTO) 5.7 K/uL (4.8-10.8)
[2021-04-10 06:22] LABS: ANION GAP 10.8 (8-16); CARBON DIOXIDE 29.2 mmol/L (21-32); CREATININE 0.7 mg/dL (0.6-1.3); PHOSPHORUS 3.5 mg/dL (2.5-4.9); TOTAL BILIRUBIN 0.4 mg/dL (0.0-1.0)
[2021-04-10] MEDS: GLYCOPYRROLATE 1 MG TAB GT SCH ×2 (09:00→21:49)
[2021-04-10] MEDS ORDERED: POLYETHYLENE GLYCOL 17 GM/PKT GT SCH (09:00)
[2021-04-10] MEDS: LEVOTHYROXINE 0.025 MG TAB GT SCH (09:00)
[2021-04-10] MEDS: LEVOTHYROXINE 0.1 MG TAB GT SCH (09:00)
[2021-04-10] MEDS: FAMOTIDINE 20 MG/2 ML VIAL IV SCH ×2 (10:09→21:49)
[2021-04-10 16:00] VITALS: BP 115/73
[2021-04-10 23:58] VITALS: BP 125/69
[2021-04-11] MEDS: HYDRAGUARD CREAM TP SCH ×2 (01:19→13:52)
[2021-04-11] MEDS: DEXT 5% / NACL 0.45% 1,000 ML IV SCH ×2 (01:19→10:45)
[2021-04-11 07:00] LABS: ANION GAP 11.1 (8-16); CARBON DIOXIDE 30.6 mmol/L (21-32); CREATININE 0.8 mg/dL (0.6-1.3); POTASSIUM 3.7 mmol/L (3.5-5.1)
[2021-04-11 07:07] LABS: BASOPHILS % (AUTO) 0.5 % (0.0-2.0); EOSINOPHILS # (AUTO) 0.2 K/uL (0-0.4); EOSINOPHILS % (AUTO) 3.5 % (0.0-4.0); HEMATOCRIT 38.4 % (36-52); HEMOGLOBIN 12.8 g/dL (12.0-18.0); LYMPHOCYTES # (AUTO) 1.2 K/uL (2.0-11.5); LYMPHOCYTES % (AUTO) 23.6 % (20.5-51.1); MEAN CORPUSCULAR HEMOGLOBIN 28 pg (27-31); MEAN CORPUSCULAR HGB CONC 33 g/dL (33-37); MEAN CORPUSCULAR VOLUME 83.5 fL (80-94); MONOCYTES # (AUTO) 0.5 K/uL (0.8-1.0); MONOCYTES % (AUTO) 8.8 % (1.7-9.3); NEUTROPHILS # (AUTO) 3.3 K/uL (1.8-7.7); NEUTROPHILS % (AUTO) 63.6 % (42.2-75.2); PLATELET COUNT (AUTO) 211 K/uL (140-450); RED CELL DISTRIBUTION WIDTH 14.4 % (11.6-13.7); WHITE BLOOD COUNT (AUTO) 5.2 K/uL (4.8-10.8)
[2021-04-11 08:00] VITALS: BP 121/66
[2021-04-11] MEDS ORDERED: CIPR500T4 PO (09:14)
[2021-04-11] MEDS: GLYCOPYRROLATE 1 MG TAB GT SCH (09:40)
[2021-04-11] MEDS: LEVOTHYROXINE 0.1 MG TAB GT SCH (09:45)
[2021-04-11] MEDS: LEVOTHYROXINE 0.025 MG TAB GT SCH (09:45)
[2021-04-11] MEDS: FAMOTIDINE 20 MG/2 ML VIAL IV SCH (09:46)
[2021-04-11] MEDS ORDERED: SULF-58 PO (15:17)
[2021-04-11 16:00] VITALS: BP 116/71
== END 2021-04-11 16:35 | disposition home health service (06) | DRG 720 ==
LOC: MED 15:34 → MMU 16:58 → MTU 17:22
PROVIDERS: ADMIT Preventive Medicine Preventive Medicine/Occupational Environmental Medicine; ATTEND Preventive Medicine Preventive Medicine/Occupational Environmental Medicine
DX: A41.9 Sepsis, unspecified organism (principal); E88.09 Other disorders of plasma-protein metabolism, not elsewhere classified; E03.9 Hypothyroidism, unspecified; J45.909 Unspecified asthma, uncomplicated; K21.9 Gastro-esophageal reflux disease without esophagitis; N39.0 Urinary tract infection, site not specified; J98.11 Atelectasis; E83.52 Hypercalcemia; F79 Unspecified intellectual disabilities; R11.2 Nausea with vomiting, unspecified; R73.9 Hyperglycemia, unspecified; Z20.822 Contact with and (suspected) exposure to COVID-19; R13.10 Dysphagia, unspecified; B96.4 Proteus (mirabilis) (morganii) as the cause of diseases classified elsewhere; Z88.1 Allergy status to other antibiotic agents; Z93.1 Gastrostomy status; Z79.899 Other long term (current) drug therapy
CPT/HCPCS: 36415; 71045; 80048; 80053; 81001; 83605; 83690; 83735; 83880; 84100; 84484; 85025; 85651; 86140; 87040; 87081; 87086; 93005; 96365; 99285; J0696; J3490; J7060; Q0092

== ENCOUNTER 2021-11-01 13:03 | Emergency (ER) | payer MEDICARE, MEDICAID ==
[~2021-11-01] VITALS: Ht 170.2 cm; Wt 79.4 kg
[~2021-11-01 13:03] MED LIST changes: -ALBU-150 GT; +CIPR500T4 PO; +FAMO-92 GT; -LACT10CA1 GT; +MAGN400S60 GT; -RANI-745 GT; +SULF-58 PO; -SULF-59 PO; +ZINC113C4 TP
--- NOTE | 2021-11-01 13:04 | NUR ---
PT BIBA BLS TO BED 04.
[2021-11-01 13:05] VITALS: BP 118/65
--- NOTE | 2021-11-01 13:05 | NUR ---
DR TREJO AT BEDSIDE.
--- NOTE | 2021-11-01 14:17 | NUR ---
61 Y/O Marychuy ZAZUETA FOR PULLING HIS G-TUBE OUT. PT IS NON VERBAL AND UANBLE TO ANSWER QUESTIONS. ALLERGIES: CIPROFLAOXACIN
--- NOTE | 2021-11-01 14:18 | NUR ---
X-RAY AND DR TREJO AT BEDSIDE FOR G-TUBE PLACEMENT.
--- NOTE | 2021-11-01 14:19 | NUR ---
Chart checked and completed. The patient's care was reviewed and supervised by Floridalma Frank RN.
[2021-11-01 16:45] VITALS: BP 100/62
== END 2021-11-01 16:45 | disposition home or self-care (01) ==
LOC: MED 13:03
DX: Z43.1 Encounter for attention to gastrostomy (principal); K21.9 Gastro-esophageal reflux disease without esophagitis; E11.9 Type 2 diabetes mellitus without complications; E03.9 Hypothyroidism, unspecified; Z79.4 Long term (current) use of insulin; Z79.899 Other long term (current) drug therapy; Z88.1 Allergy status to other antibiotic agents
CPT/HCPCS: 43762; 74240; 99284; Q0092

== ENCOUNTER 2022-02-04 14:42 | Inpatient (IN) | payer MEDICAID, MEDICARE ==
[~2022-02-04] VITALS: Ht 175.3 cm; Wt 71.7 kg
[2022-02-04 15:00] VITALS: BP 147/87
[2022-02-04] MEDS ORDERED: ACETAMINOPHEN 650 MG SUPP RC ONE (15:10)
[2022-02-04] MEDS ORDERED: PIPERACILLIN/TAZOBACTAM 3.375 GM in DEXT 5% MINI-BAG PLUS 50 ML IV ONE (15:10)
[2022-02-04] MEDS ORDERED: NACL 0.9% 2,000 ML IV SCH (15:10)
[2022-02-04] MEDS ORDERED: ACETAMINOPHEN 650 MG/20.3 ML UDC PO ONE (15:15)
[2022-02-04] MEDS ORDERED: PIPERACILLIN/TAZOBACTAM 3.375 GM VIAL IV ONE ×2 (15:28→23:58)
[2022-02-04 15:44] LABS: BASOPHILS # (AUTO) 0.1 K/uL (0.00-0.22); BASOPHILS % (AUTO) 0.5 % (0.0-2.0); HEMATOCRIT 36.9 % (36-52); HEMOGLOBIN 12.1 g/dL (12.0-18.0); LYMPHOCYTES # (AUTO) 0.6 K/uL (2.0-11.5); LYMPHOCYTES % (AUTO) 3.7 % (20.5-51.1); MEAN CORPUSCULAR HEMOGLOBIN 27 pg (27-31); MEAN CORPUSCULAR HGB CONC 33 g/dL (33-37); MEAN CORPUSCULAR VOLUME 83.4 fL (80-94); MONOCYTES % (AUTO) 6.6 % (1.7-9.3); NEUTROPHILS # (AUTO) 13.5 K/uL (1.8-7.7); NEUTROPHILS % (AUTO) 89.2 % (42.2-75.2); PLATELET COUNT (AUTO) 177 K/uL (140-450); RED BLOOD CELL COUNT(AUTO) 4.42 MIL/uL (4.20-6.10); RED CELL DISTRIBUTION WIDTH 15.1 % (11.6-13.7); WHITE BLOOD COUNT (AUTO) 15.2 K/uL (4.8-10.8)
--- NOTE | 2022-02-04 16:00 | NUR ---
61/M WHEELCHAIRED INTO ED FROM [facility] D/T [place] X3DAYS ACCOMPANIED BY FEVER ONSET TODAY. CAREGIVER STATES PATIENT GIVEN TYLENOL @ 10AM TODAY. TACHY AT BEDSIDE, ON MONITOR. SEPSIS PROTOCOL INITIATED. FEVER AT BEDSIDE. NO COUGH. ON ROOM AIR. IV ESTABLISHED ON LEFT AC 20. COVID SWAB, FLU, AND URINE COLLECTED. NO SKIN ISSUES NOTED. EKG DONE AT BEDSIDE. XR DONE AT BEDSIDE. PMH: ID, DIABETES, GERD, HYPOTHYROIDISM ALLERGIES: CIPRO
--- NOTE | 2022-02-04 16:15 | NUR ---
ABG DRAWN AT BEDSIDE
--- NOTE | 2022-02-04 16:15 | NUR ---
PT PRESENTS WITH GTUBE
[2022-02-04 16:27] LABS: ALBUMIN 3.2 g/dL (3.4-5.0); ANION GAP 14.7 (8-16); CARBON DIOXIDE 26.2 mmol/L (21-32); CHLORIDE 101 mmol/L (98-107); CREATININE 0.8 mg/dL (0.6-1.3); GFR ARICAN-AMERICAN 126 mL/min (>90); GLUCOSE 119 mg/dL (74-106); POTASSIUM 3.9 mmol/L (3.5-5.1); SODIUM SERUM 138 mmol/L (136-145); TOTAL BILIRUBIN 0.7 mg/dL (0.0-1.0); UREA NITROGEN, BLOOD 19 mg/dL (7-18)
[2022-02-04 16:42] LABS: APPEARANCE,URINE SL CLOUDY (CLEAR); BILIRUBIN,URINE NEGATIVE (NEGATIVE); BLOOD, URINE 1+ (NEGATIVE); COLOR,URINE YELLOW (YELLOW); LEUKOCYTE ESTERASE ,URINE 3+ (NEGATIVE); NITRITE, URINE POSITIVE (NEGATIVE); PH,URINE 6.5 (5.0-9.0); UGLUCOSE NEGATIVE (NEGATIVE)
[2022-02-04 16:53] LABS: RBC,URINE 11-20 (MOD) /HPF (0-5); TRICHOMONAS,URINE None Seen /HPF (None Seen); WBC,URINE TOO MANY TO COUNT /HPF (0-5); YEAST,URINE None Seen /HPF (None Seen)
[2022-02-04] MEDS ORDERED: XAR10 GT (17:09)
[2022-02-04] MEDS ORDERED: FAMO-92 GT (17:09)
[2022-02-04] MEDS ORDERED: ZINC220C29 PO (17:09)
[2022-02-04] MEDS ORDERED: LEVO0.2T5 GT (17:09)
[2022-02-04] MEDS ORDERED: METO-485 GT (17:09)
--- NOTE | 2022-02-04 17:47 | NUR ---
pt diaper defecated and changed
[2022-02-04] MEDS ORDERED: bisacodyL 10 MG SUPP RC PRN (20:45)
[2022-02-04] MEDS ORDERED: ONDANSETRON 4 MG TAB GT PRN (20:45)
[2022-02-04] MEDS ORDERED: SODIUM PHOSPHATE 118 ML ENEM RC PRN (20:45)
[2022-02-04] MEDS ORDERED: ACETAMINOPHEN 325 MG TAB GT PRN (20:45)
[2022-02-04] MEDS ORDERED: MAGNESIUM HYDROXIDE 2400 MG/30 ML UDC GT PRN (20:45)
[2022-02-04] MEDS ORDERED: HYDROcodone/APAP 5/325 MG 1 TAB TAB GT PRN (20:45)
--- NOTE | 2022-02-04 22:00 | NUR ---
report given to Kasi DAINELLE from [facility]
--- NOTE | 2022-02-04 22:15 | NUR ---
RECEIVED PATIENT FROM ER NURSE VIA YECENIA. PT IS AWAKE,NON VERBAL,PIV ON LAC 20 G PATENT AND INTACT, VITAL SIGNS WNL, NO DISTRESS NOTED
[2022-02-05] VITALS (7 sets, daily range): BP systolic 100–112; BP diastolic 55–79
[2022-02-05] MEDS: PIPERACILLIN/TAZOBACTAM 3.375 GM in DEXTROSE 5% 50 ML IV SCH ×4 (00:05→20:56)
[2022-02-05] MEDS: DEXT 5% / NACL 0.45% 1,000 ML IV SCH ×3 (00:08→14:55)
[2022-02-05] MEDS: GLYCOPYRROLATE 1 MG TAB GT SCH ×3 (00:19→20:55)
--- NOTE | 2022-02-05 02:00 | NUR ---
PATIENT ASLEEP,BREATHING EVEN AND UNLABORED,NO DISTRESS NOTED
[2022-02-05] MEDS ORDERED: PIPERACILLIN/TAZOBACTAM 3.375 GM VIAL IV ONE (04:50)
--- NOTE | 2022-02-05 06:00 | NUR ---
CLEANED AND REPOSITIONED THE PT, TOLERATED WELL,NO DISTRESS NOTED
[2022-02-05] MEDS: LEVOTHYROXINE 0.1 MG TAB GT SCH (06:01)
[2022-02-05 07:01] LABS: BASOPHILS % (AUTO) 0.2 % (0.0-2.0); EOSINOPHILS % (AUTO) 0.1 % (0.0-4.0); HEMATOCRIT 33.6 % (36-52); LYMPHOCYTES # (AUTO) 1.2 K/uL (2.0-11.5); LYMPHOCYTES % (AUTO) 9.7 % (20.5-51.1); MEAN CORPUSCULAR HEMOGLOBIN 27 pg (27-31); MEAN CORPUSCULAR HGB CONC 33 g/dL (33-37); MEAN CORPUSCULAR VOLUME 84.3 fL (80-94); MONOCYTES # (AUTO) 1.2 K/uL (0.8-1.0); MONOCYTES % (AUTO) 9.1 % (1.7-9.3); NEUTROPHILS # (AUTO) 10.3 K/uL (1.8-7.7); NEUTROPHILS % (AUTO) 80.9 % (42.2-75.2); PLATELET COUNT (AUTO) 161 K/uL (140-450); RED BLOOD CELL COUNT(AUTO) 3.99 MIL/uL (4.20-6.10); RED CELL DISTRIBUTION WIDTH 15.3 % (11.6-13.7); WHITE BLOOD COUNT (AUTO) 12.7 K/uL (4.8-10.8)
[2022-02-05] MEDS ORDERED: ACETAMINOPHEN 650 MG/20.3 ML UDC GT PRN (07:05)
[2022-02-05] MEDS ORDERED: ONDANSETRON 4 MG/5 ML ORASYR GT PRN (07:10)
[2022-02-05] MEDS ORDERED: ZINC OXIDE 113 GM TUBE TP PRN (07:10)
[2022-02-05] MEDS ORDERED: SODIUM PHOSPHATE 118 ML ENEM RC PRN (07:11)
[2022-02-05 07:19] LABS: ALBUMIN 2.7 g/dL (3.4-5.0); ANION GAP 13.1 (8-16); CARBON DIOXIDE 26.7 mmol/L (21-32); CHLORIDE 105 mmol/L (98-107); CREATININE 0.8 mg/dL (0.6-1.3); GFR ARICAN-AMERICAN 126 mL/min (>90); GLUCOSE 93 mg/dL (74-106); MAGNESIUM 1.9 mg/dL (1.8-2.4); PHOSPHORUS 2.5 mg/dL (2.5-4.9); POTASSIUM 3.8 mmol/L (3.5-5.1); TOTAL BILIRUBIN 0.7 mg/dL (0.0-1.0); UREA NITROGEN, BLOOD 15 mg/dL (7-18)
--- NOTE | 2022-02-05 07:25 | NUR ---
ENDORSED PT TO AM NURSE FOR CONTINUITY OF CARE. PT IS STABLE
[2022-02-05 07:31] LABS: SODIUM SERUM 141 mmol/L (136-145)
[2022-02-05] MEDS: RIVAROXABAN 10 MG TAB GT SCH (08:43)
[2022-02-05] MEDS: METOCLOPRAMIDE 10 MG TAB GT SCH ×3 (08:46→17:00)
[2022-02-05] MEDS: FAMOTIDINE 20 MG TAB GT SCH (08:46)
[2022-02-05] MEDS: ZINC SULF 220 MG CAP GT SCH (08:46)
[2022-02-05] MEDS ORDERED: NUTRITIONAL SUPPLEMENT GT SCH (09:00)
[2022-02-05] MEDS ORDERED: POTASSIUM CHLORIDE 20% 40 MEQ/15 ML UDC GT SCH (10:00)
[2022-02-05] MEDS ORDERED: MAGNESIUM OXIDE 400 MG TAB GT SCH (10:00)
--- NOTE | 2022-02-05 13:43 | NUR ---
PT. WITH LOW MIGUEL ANGEL SCALE AT MODERATE TO HIGH RISK, CONTINUE TO FOLLOW PRESSURE INJURY PREVENTION INTERVENTIONS. -POSITIONING: TURN AND REPOSITION PATIENT Q 2H OR SOONER USE PILLOWS TO KEEP BONY PROMINENCES FROM DIRECT CONTACT WITH SURFACES USE REPOSITIONING WEDGES TO PROVIDE 30-DEGREE ANGLE FOR SIDE LYING POSITIONS OFFLOADING OR FOAM DRESSING TO ALL TUBING TO PREVENT MEDICAL DEVICES RELATED PRESSURE INJURY -RE-EVALUATING AND MANAGING INCONTINENCE MONITOR SKIN CONDITION DURING POSITION CHANGE DO NOT MASSAGE REDNESS, BONY PROMINENCES FREQUENT EDUARDO-CARE AND PROVIDE BARRIER CREAMS PRN IF SOILING MOISTURE CONTROL BY OFFER BED ABRAMS/URINAL /ABSORBENT PAD TO WICK AND HOLD MOISTURE KEEP SKIN DRY AND PROTECT FROM FRICTION -MANAGE FRICTION/SHEAR/MOBILITY KEEP HOB AT THE LOWEST LEVEL OF ELEVATION NO MORE THAN 30 DEGREE UNLESS OTHERWISE CONTRAINDICATED USE LIFT SHEET OR TRANSFER DEVICE TO MOVE PATIENT AND PREVENT LATERAL SHEER. PROTECT HEELS, ELBOWS BONY PROMINENCES WITH SKIN BERRIES OR FOAM DRESSING IF EXPOSED TO FRICTION OFFLOAD BILATERAL HEELS BY PLACING PILLOWS UNDER CALVES AT ALL TIMES, UNLESS OTHERWISE CONTRAINDICATED -PRESSURE REDISTRIBUTION SURFACE THERAPY FRANCESCO ISOFLEX MATTRESS -NUTRITION: PLEASE FOLLOW RD RECOMMENDATIONS AND OFFER NUTRITION SUPPLEMENTS IF ORDERED. PLEASE CONTACT WOUND CARE NURSE FOR ANY QUESTION AND CHANGE OF WOUND CONDITION.
--- NOTE | 2022-02-05 15:20 | NUR ---
DC PLANNING PATIENT IS NONVERBAL, THEREFORE DORIS REACHED OUT TO [facility]. DORIS SPOKE TO COLT, [facility] ADMIN. COLT REPORTS THAT PATIENT HAS BEEN WITH [facility] SINCE OCTOBER 27, 2011. PT IS REGIONAL CENTER CONNECTED, [facility] [address] IS [place], . PATIENT IS REPORTED TO BE NON VERBAL AND CAN DISPLAY AGGRESSIVE BEHAVIORS. PT IS FOLLOWED BY DR. CY FANG. PATIENT HAS ACTIVE FAMILY ENGAGEMENT [phone]. COLT REPORTS DC PLAN IS FOR PATIENT TO RETURN HOME ONCE CLINICALLY STABLE.
--- NOTE | 2022-02-05 19:45 | NUR ---
RECEIVED PATIENT FROM AM NURSE FOR CONTINUITY OF CARE.PT IS STABLE
--- NOTE | 2022-02-05 22:00 | NUR ---
STARTED TUBE FEEDING WITH GLUCERNA 1.2 AT 10 ML /HR AND TO INCREASE BY 10 ML Q 4 HRS WITH 100 ML WATER FLUSH. THE GOAL IS 50 ML/HR
[2022-02-06] VITALS: BP 99/61
[2022-02-06] MEDS: DEXT 5% / NACL 0.45% 1,000 ML IV SCH (00:31)
[2022-02-06] MEDS: LORazepam 2 MG/ML VIAL IVP PRN ×2 (01:23→10:33)
--- NOTE | 2022-02-06 03:00 | NUR ---
PATIENT ASLEEP, BREATHING EVEN AND UNLABORED,NO DISTRESS NOTED
[2022-02-06 04:00] VITALS: BP 107/61
[2022-02-06] MEDS: PIPERACILLIN/TAZOBACTAM 3.375 GM in DEXTROSE 5% 50 ML IV SCH ×3 (04:41→13:13)
[2022-02-06] MEDS: LEVOTHYROXINE 0.1 MG TAB GT SCH (05:57)
--- NOTE | 2022-02-06 06:00 | NUR ---
INCREASED GTUBE FEEDING AT 30ML/HR, TOLERATED WELL
[2022-02-06 07:17] LABS: BASOPHILS % (AUTO) 0.4 % (0.0-2.0); EOSINOPHILS # (AUTO) 0.1 K/uL (0-0.4); EOSINOPHILS % (AUTO) 1.1 % (0.0-4.0); HEMATOCRIT 31.5 % (36-52); HEMOGLOBIN 10.4 g/dL (12.0-18.0); LYMPHOCYTES # (AUTO) 1.3 K/uL (2.0-11.5); LYMPHOCYTES % (AUTO) 13.6 % (20.5-51.1); MEAN CORPUSCULAR HEMOGLOBIN 28 pg (27-31); MEAN CORPUSCULAR HGB CONC 33 g/dL (33-37); MONOCYTES # (AUTO) 0.8 K/uL (0.8-1.0); MONOCYTES % (AUTO) 8.5 % (1.7-9.3); NEUTROPHILS # (AUTO) 7.6 K/uL (1.8-7.7); NEUTROPHILS % (AUTO) 76.4 % (42.2-75.2); PLATELET COUNT (AUTO) 182 K/uL (140-450); RED BLOOD CELL COUNT(AUTO) 3.75 MIL/uL (4.20-6.10); RED CELL DISTRIBUTION WIDTH 15.2 % (11.6-13.7); WHITE BLOOD COUNT (AUTO) 9.9 K/uL (4.8-10.8)
[2022-02-06 07:40] LABS: PHOSPHORUS 2.7 mg/dL (2.5-4.9)
[2022-02-06 07:59] LABS: ANION GAP 11.2 (8-16); CARBON DIOXIDE 28.2 mmol/L (21-32); CREATININE 0.7 mg/dL (0.6-1.3); POTASSIUM 3.4 mmol/L (3.5-5.1)
[2022-02-06 08:00] VITALS: BP 94/53
[2022-02-06] MEDS ORDERED: POLYETHYLENE GLYCOL 17 GM/PKT GT SCH (09:00)
--- NOTE | 2022-02-06 09:01 | NUR ---
PATIENT HAS BEEN SCREENED AND CATEGORIZED HIGH NUTRITION RISK. PATIENT WILL BE SEEN WITHIN 1-2 DAYS OF ADMISSION. CONSULT RECEIVED FOR TUBE FEEDING RON CORTEZ RD
[2022-02-06] MEDS: METOCLOPRAMIDE 10 MG TAB GT SCH ×4 (10:16→18:54)
[2022-02-06] MEDS: ZINC SULF 220 MG CAP GT SCH (10:16)
[2022-02-06] MEDS: GLYCOPYRROLATE 1 MG TAB GT SCH ×2 (10:16→20:22)
[2022-02-06] MEDS: FAMOTIDINE 20 MG TAB GT SCH (10:17)
[2022-02-06] MEDS: RIVAROXABAN 10 MG TAB GT SCH (10:18)
--- NOTE | 2022-02-06 10:55 | NUR ---
UPPED GTF RATE TO 40ML/HR. GOOD TOLERANCE. PT MEDICATED W PRN ATIVAN ORDERED D/T PT SLAPPING STAFF. MEDICATION EFFECTIVE.
[2022-02-06 12:00] VITALS: BP 104/84
[2022-02-06] MEDS ORDERED: POTASSIUM CHLORIDE 20% 40 MEQ/15 ML UDC PO SCH (13:05)
--- NOTE | 2022-02-06 15:23 | NUR ---
02/06/22 RD INITIAL ASSESSMENT COMPLETED PLEASE REFER TO NUTRITION ASSESSMENT UNDER CARE ACTIVITY FOR ESTIMATED NUTRITIONAL NEEDS. 1. RECOMMEND INCREASING GLUCERNA 1.2 TO 65 ML/HR WITH FWF 100ML Q4H - INCREASE BY 10 ML Q4H TOLERATED UNTIL GOAL IS MET, 65ML/HR. -WILL PROVIDE 1872 KCAL, 93 G PROTEIN, MEETING 100% OF ESTIMATED NUTRIENT NEEDS 2. RD WILL CONTINUE MONITOR GASTRIC RESIDUALS AND GI SYMPTOMS. 3. RD TO FOLLOW-UP 3-5 DAYS, MODERATE RISK REVIEWED BY RON CORTEZ RD
[2022-02-06 16:00] VITALS: BP 95/60
--- NOTE | 2022-02-06 16:28 | NUR ---
P.T. NOTES P.T. EVAL COMPLETED; REFER TO EVAL FOR DETAILS.
--- NOTE | 2022-02-06 19:08 | NUR ---
ROCEPHIN NOT ON UNIT. WILL CALL PHARMACY FOR MED SO IT CAN BE STARTED ORDERED.
--- NOTE | 2022-02-06 19:36 | NUR ---
GET THE REPORT FROM MORNING NURSE LUIS M , PATIENT IS LYING ON BED, PATIENT IS DEVELOPMENTAL DELAYED , PATIENT IS RECEIVING OXYGEN 2 LITER VIA NASAL CANNULA, PATIENT IS APHASIC, ALL FALL PRECAUTION MEASURE ARE IN PLACE, CALL LIGHT IS WITHIN THE REACH, WILL CONTINUE TO MONITOR PATIENT.
[2022-02-06 20:00] VITALS: BP 114/68
--- NOTE | 2022-02-06 20:38 | NUR ---
PATIENT IS LYING ON BED, NO ANY COMPLAIN OF PAIN OR SHORTNESS OF BREATH NOTED AT THIS TIME,VITAL SIGN IS WITHIN THE NORMAL RANGE, ALL SCHEDULE MEDICATION IS GIVEN ASS PER DOCTOR ORDER, CALL LIGHT IS WITHIN THE REACH, WILL CONTINUE TO MONITOR PATIENT.
[2022-02-07] VITALS: BP 118/73
--- NOTE | 2022-02-07 00:46 | NUR ---
PATIENT IS LYING ON BED, VITAL SIGN IS WITHIN THE NORMAL RANGE, CALL LIGHT IS WITHIN THE REACH, WILL CONTINUE TO MONITOR PATIENT.
[2022-02-07 04:00] VITALS: BP 117/68
--- NOTE | 2022-02-07 04:27 | NUR ---
PATIENT IS LYING ON BED, NO ANY COMPLAIN OF PAIN OR SHORTNESS OF BREATH AT THIS TIME, VITAL SIGN IS WITHIN THE NORMAL RANGE, ALL SCHEDULE MEDICATION IS GIVEN PER DOCTOR ORDER, CALL LIGHT IS WITHIN THE NORMAL RANGE, WILL CONTINUE TO MONITOR PATIENT.
[2022-02-07] MEDS: LEVOTHYROXINE 0.1 MG TAB GT SCH (05:31)
[2022-02-07 06:43] LABS: CARBON DIOXIDE 27.8 mmol/L (21-32); CREATININE 0.6 mg/dL (0.6-1.3); POTASSIUM 3.8 mmol/L (3.5-5.1)
[2022-02-07 06:56] LABS: MAGNESIUM 1.8 mg/dL (1.8-2.4); PHOSPHORUS 3.6 mg/dL (2.5-4.9)
--- NOTE | 2022-02-07 07:10 | NUR ---
GAVE REPORT TO MORNING NURSE ZIYAD FOR CONTINUOS OF CARE, PATIENT IS STABLE.
--- NOTE | 2022-02-07 07:11 | NUR ---
RECEIVED BEDSIDE REPORT FROM LINE INSTALLER REPAIRER NURSE BERNARD RN, PT RESTING, NO DISTRESS NOTED, PT HAS HX OF MENTALLY CHALLENGED, APHASIC, UNABLE TO LET NEEDS KNOWN. IV TO RIGHT FA 22G PATENT INTACT SL. PT ON ROOM AIR, NO SOB NOTED, GT IN PLACE WITH TUBE FEEDING, TOLERATING WELL. INITIAL ASSESSMENT DONE, ALL SAFETY PRECAUTION MET, CALL LIGHT WITHIN REACH, WILL CONTINUE TO MONITOR.
[2022-02-07 07:30] LABS: BASOPHILS % (AUTO) 0.5 % (0.0-2.0); EOSINOPHILS # (AUTO) 0.1 K/uL (0-0.4); EOSINOPHILS % (AUTO) 2.7 % (0.0-4.0); HEMATOCRIT 30.2 % (36-52); LYMPHOCYTES % (AUTO) 18.8 % (20.5-51.1); MEAN CORPUSCULAR HEMOGLOBIN 28 pg (27-31); MEAN CORPUSCULAR HGB CONC 33 g/dL (33-37); MEAN CORPUSCULAR VOLUME 83.1 fL (80-94); MONOCYTES # (AUTO) 0.5 K/uL (0.8-1.0); MONOCYTES % (AUTO) 9.2 % (1.7-9.3); NEUTROPHILS # (AUTO) 3.6 K/uL (1.8-7.7); NEUTROPHILS % (AUTO) 68.8 % (42.2-75.2); PLATELET COUNT (AUTO) 178 K/uL (140-450); RED BLOOD CELL COUNT(AUTO) 3.63 MIL/uL (4.20-6.10); RED CELL DISTRIBUTION WIDTH 14.7 % (11.6-13.7); WHITE BLOOD COUNT (AUTO) 5.3 K/uL (4.8-10.8)
[2022-02-07 08:00] VITALS: BP_SYST 113; BP_SYST 164; BP_DIAS 62; BP_DIAS 69
[2022-02-07] MEDS: GLYCOPYRROLATE 1 MG TAB GT SCH (08:45)
[2022-02-07] MEDS: FAMOTIDINE 20 MG TAB GT SCH (08:45)
[2022-02-07] MEDS: METOCLOPRAMIDE 10 MG TAB GT SCH ×2 (08:45→13:29)
[2022-02-07] MEDS: ZINC SULF 220 MG CAP GT SCH (08:46)
[2022-02-07] MEDS: RIVAROXABAN 10 MG TAB GT SCH (08:46)
[2022-02-07] MEDS ORDERED: LEVO-481 GT (09:20)
--- NOTE | 2022-02-07 10:10 | NUR ---
CALLED [facility] REGARDING PT DC WAS TOLD TO CALL EDMUND RN TO ARRANGE TRANSPORT. SPOKE TO EDMUND AT [phone]. GAVE REPORT AND WAS TOLD ACCOUNTANT COST TIME BETWEEN 1400 AND 1500. WILL FOLLOW UP.
[2022-02-07] MEDS ORDERED: MAG SULF 2000 MG/WATER PREMIX 50 ML IV SCH (10:26)
[2022-02-07] MEDS ORDERED: POTASSIUM CHLORIDE 20% 40 MEQ/15 ML UDC GT SCH (10:27)
--- NOTE | 2022-02-07 10:29 | NUR ---
CALLED [phone] PHONE IS DISCONNECTED, UNABLE TO LEAVE MESSAGE.
[2022-02-07 12:00] VITALS: BP 121/80
--- NOTE | 2022-02-07 12:00 | NUR ---
PT RESTING IN BED AND NO SIGNS OF DISTRESS AT THIS TIME
[2022-02-07] MEDS ORDERED: SULF-59 PO (13:37)
--- NOTE | 2022-02-07 13:43 | NUR ---
RECEIVED PHONE CALL FROM EDMUND DANIELLE REGARDING PT MEDICATION, PT ALLERGIC TO [facility] WHICH IS IN THE SAME FAMILY WITH ROBERTA. CALLED DR DUMONT, CHANGED ABX ORDERED TO [facility]. CALLED EDMUND AGAIN REGARDING CHANGED OF MEDICATION. STATED UNDERSTANDING.
--- NOTE | 2022-02-07 15:10 | NUR ---
PT DISCHARGED IN STABLE CONDITION WITH CAREGIVER
== END 2022-02-07 15:10 | disposition home or self-care (01) | DRG 720 ==
LOC: MED 14:42 → MTU 18:59
PROVIDERS: ADMIT Preventive Medicine Preventive Medicine/Occupational Environmental Medicine; ATTEND Preventive Medicine Preventive Medicine/Occupational Environmental Medicine
DX: A41.9 Sepsis, unspecified organism (principal); J96.01 Acute respiratory failure with hypoxia; J69.0 Pneumonitis due to inhalation of food and vomit; G82.50 Quadriplegia, unspecified; E88.09 Other disorders of plasma-protein metabolism, not elsewhere classified; N39.0 Urinary tract infection, site not specified; B96.20 Unspecified Escherichia coli [E. coli] as the cause of diseases classified elsewhere; E11.65 Type 2 diabetes mellitus with hyperglycemia; D64.9 Anemia, unspecified; E03.9 Hypothyroidism, unspecified; E83.52 Hypercalcemia; G40.909 Epilepsy, unspecified, not intractable, without status epilepticus; J45.909 Unspecified asthma, uncomplicated; K21.9 Gastro-esophageal reflux disease without esophagitis; R13.10 Dysphagia, unspecified; Z88.1 Allergy status to other antibiotic agents; Z93.1 Gastrostomy status; Z88.8 Allergy status to other drugs, medicaments and biological substances; Z79.899 Other long term (current) drug therapy; Z20.822 Contact with and (suspected) exposure to COVID-19
CPT/HCPCS: 36415; 36600; 71045; 80048; 80053; 81001; 82803; 82948; 83605; 83735; 84100; 84484; 85025; 85651; 86140; 87040; 87081; 87086; 93005; 96365; 97163-GP; 99285; J0696; J2060; J2543; J3475; J7060; J8597

== ENCOUNTER 2022-08-27 21:45 | Inpatient (IN) | payer MEDICAID, MEDICARE ==
[~2022-08-27] VITALS: Ht 167.6 cm; Wt 65.3 kg
[~2022-08-27 21:45] MED LIST changes: +LEVO0.2T5 GT; +METO-485 GT; -SULF-58 PO; +SULF-59 PO; +XAR10 GT; +ZINC220C29 PO
[2022-08-27 21:51] VITALS: BP 115/67
--- NOTE | 2022-08-27 22:01 | NUR ---
Patient to Bed 4
--- NOTE | 2022-08-27 22:01 | NUR ---
Patient resting in bed, A/Ox0, chest rise and fall symmetrical, FLACC-0, no s/s of distress, on monitor.
[2022-08-27] MEDS ORDERED: NACL 0.9% 1,000 ML IV ONE ×2 (22:25→23:00)
[2022-08-27] MEDS ORDERED: ACETAMINOPHEN 650 MG SUPP RC ONE (22:35)
[2022-08-27] MEDS ORDERED: PIPERACILLIN/TAZOBACTAM 3.375 GM in DEXTROSE 5% 50 ML IV ONE (23:00)
[2022-08-27 23:02] LABS: BASOPHILS % (AUTO) 0.2 % (0.0-2.0); EOSINOPHILS % (AUTO) 0.1 % (0.0-4.0); HEMATOCRIT 36.7 % (36-52); HEMOGLOBIN 12.1 g/dL (12.0-18.0); LYMPHOCYTES # (AUTO) 0.6 K/uL (2.0-11.5); LYMPHOCYTES % (AUTO) 7.6 % (20.5-51.1); MEAN CORPUSCULAR HEMOGLOBIN 27 pg (27-31); MEAN CORPUSCULAR HGB CONC 33 g/dL (33-37); MEAN CORPUSCULAR VOLUME 82.7 fL (80-94); MONOCYTES # (AUTO) 0.9 K/uL (0.8-1.0); MONOCYTES % (AUTO) 11.7 % (1.7-9.3); NEUTROPHILS # (AUTO) 6.3 K/uL (1.8-7.7); NEUTROPHILS % (AUTO) 80.4 % (42.2-75.2); PLATELET COUNT (AUTO) 195 K/uL (140-450); RED BLOOD CELL COUNT(AUTO) 4.44 MIL/uL (4.20-6.10); RED CELL DISTRIBUTION WIDTH 15.2 % (11.6-13.7); WHITE BLOOD COUNT (AUTO) 7.9 K/uL (4.8-10.8)
[2022-08-27 23:32] LABS: APPEARANCE,URINE CLOUDY (CLEAR); BILIRUBIN,URINE NEGATIVE (NEGATIVE); BLOOD, URINE TRACE-I (NEGATIVE); COLOR,URINE YELLOW (YELLOW); LEUKOCYTE ESTERASE ,URINE 2+ (NEGATIVE); NITRITE, URINE POSITIVE (NEGATIVE); PH,URINE 5.5 (5.0-9.0); UGLUCOSE NEGATIVE (NEGATIVE)
[2022-08-27 23:36] LABS: ALBUMIN 3.3 g/dL (3.4-5.0); ANION GAP 13.2 (8-16); CARBON DIOXIDE 27.9 mmol/L (21-32); CREATININE 0.9 mg/dL (0.6-1.3); POTASSIUM 4.1 mmol/L (3.5-5.1); TOTAL BILIRUBIN 0.7 mg/dL (0.0-1.0)
[2022-08-27] MEDS ORDERED: PIPERACILLIN/TAZOBACTAM 3.375 GM VIAL IV ONE (23:42)
[2022-08-27 23:46] LABS: RBC,URINE 0-5 /HPF (0-5)
[2022-08-27 23:56] LABS: LIPASE 89 U/L (73-393)
--- NOTE | 2022-08-28 00:03 | NUR ---
Patient resting in bed, A/Ox0, chest rise and fall symmetrical, FLACC-0, no s/s of distress, on monitor.
[2022-08-28] MEDS ORDERED: NACL 0.9% 1,000 ML IV SCH (02:00)
--- NOTE | 2022-08-28 02:00 | NUR ---
Patient resting in bed, A/Ox0, chest rise and fall symmetrical, FLACC-0, no s/s of distress, on monitor.
--- NOTE | 2022-08-28 04:33 | NUR ---
Admitting Physician, Dr. Lamas, notified via telephone that patient's HR is 136, and BP is 111/66.
--- NOTE | 2022-08-28 04:33 | NUR ---
Patient resting in bed, A/Ox0, chest rise and fall symmetrical, FLACC-0, no s/s of distress, on monitor.
--- NOTE | 2022-08-28 04:45 | NUR ---
Orders received from Dr. Lamas.
[2022-08-28] MEDS ORDERED: MORPHINE SULFATE 2 MG/ML SYR IVP SCH (04:50)
[2022-08-28] MEDS ORDERED: ACETAMINOPHEN 650 MG SUPP RC SCH (04:55)
--- NOTE | 2022-08-28 05:00 | NUR ---
Patient resting in bed, A/Ox0, chest rise and fall symmetrical, FLACC-0, no s/s of distress, on monitor.
[2022-08-28] MEDS ORDERED: MORPHINE SULFATE 2 MG/ML SYR ONE (05:02)
[2022-08-28] MEDS ORDERED: ACETAMINOPHEN 650 MG SUPP RC ONE (05:02)
[2022-08-28] MEDS ORDERED: PRON INH (05:31)
[2022-08-28] MEDS ORDERED: ZINC10OI TP (05:31)
[2022-08-28] MEDS ORDERED: METO10TA10 PO (05:31)
[2022-08-28] MEDS ORDERED: [UNRECOGNIZED DRUG - CODE] RC (05:31)
[2022-08-28] MEDS ORDERED: LACT1CAP70 PO (05:31)
[2022-08-28] MEDS ORDERED: ZINC220C28 PO (05:31)
[2022-08-28] MEDS ORDERED: ASCO500T95 PO (05:31)
[2022-08-28] MEDS ORDERED: LOTC TP (05:31)
[2022-08-28] MEDS ORDERED: CHOL500040 PO (05:31)
--- NOTE | 2022-08-28 07:02 | NUR ---
Patient resting in bed, A/Ox0, chest rise and fall symmetrical, FLACC-0, no s/s of distress, on monitor.
--- NOTE | 2022-08-28 07:32 | NUR ---
Change of shift report given to AM shift nurse Abhi DANIELLE. Abhi DANIELLE verbalized understanding of report, no further questions.
--- NOTE | 2022-08-28 07:39 | NUR ---
ASSUMED PATIENT CARE, CONCUR WITH PRIOR NURSING ASSESSMENTS.
[2022-08-28] MEDS ORDERED: POTASSIUM CHLORIDE 10 MEQ TABER PO PRN (08:10)
[2022-08-28] MEDS ORDERED: ZOLPIDEM 5 MG TAB PO PRN (08:10)
[2022-08-28] MEDS ORDERED: HYDROcodone/APAP 7.5/325 MG 1 TAB PO PRN (08:10)
[2022-08-28] MEDS ORDERED: ONDANSETRON 4 MG/2 ML VIAL IM/IVP PRN (08:10)
[2022-08-28] MEDS: NACL 0.9% 1,000 ML IV SCH ×2 (08:10→18:19)
[2022-08-28] MEDS ORDERED: ACETAMINOPHEN 325 MG TAB PO PRN (08:10)
[2022-08-28] MEDS ORDERED: DOCUSATE SODIUM 100 MG GELCAP PO PRN (08:10)
[2022-08-28] MEDS ORDERED: guaiFENesin DM 200/20 MG-10 ML 10 ML UDC PO PRN (08:10)
--- NOTE | 2022-08-28 08:23 | NUR ---
Patient will be admitted to care of DR YAÑEZ. Admited to [facility]. Will go to room 123B. Belongings list completed. Report to
--- NOTE | 2022-08-28 08:30 | NUR ---
RECEIVED REPORT FROM ER NURSE. PT IS STABLE, 2L NASAL CANULA, PT IS BEDBOUND, ALERT X0. PT IS RESTING WITH CHEST RISING AND FALLING. NO ACUTE S/S OF DISTRESS. ALL SAFETY MEASURES IN PLACE. POC DISCUSSED. PT MONITORING AND CARE RESUMED.
[2022-08-28 08:40] LABS: PROTHROMBIN TIME 10.9 secs (10.8-13.4)
[2022-08-28 08:49] LABS: FREE T4 (FREE THYROXINE) 1.49 ng/dL (0.76-1.46); MAGNESIUM 1.6 mg/dL (1.8-2.4); PHOSPHORUS 2.3 mg/dL (2.5-4.9); THYROID STIMULATING HORMONE 0.13 uIU/mL (0.34-3.74)
[2022-08-28] MEDS: RIVAROXABAN 10 MG TAB GT SCH (09:00)
[2022-08-28] MEDS ORDERED: PANTOPRAZOLE 40 MG TABEC PO SCH (09:00)
[2022-08-28] MEDS ORDERED: LEVOTHYROXINE 0.1 MG TAB GT SCH (09:00)
--- NOTE | 2022-08-28 09:07 | NUR ---
PATIENT HAS BEEN SCREENED AND CATEGORIZED MODERATE NUTRITION RISK. PATIENT WILL BE SEEN WITHIN 3-5 DAYS OF ADMISSION. 08/31/22-09/02/[address]ON [address] Addendum: 08/28/22 at [address] REFERRAL RECEIVED FRO DYSPHAGIA PT WAS RE-ASSESSED AND CATEGORIZED HIGH NUTRITION RISK. PT WILL BE SEEN WITHIN 1-2 DAYS OF REFERRAL 08/30/22-08/31/22
--- NOTE | 2022-08-28 10:24 | NUR ---
ADMINISTERED SCHEDULED DOSE OF PTS SYNTHROID FOR 0900 08/28/22 BUT DOSAGE WAS CHANGED IN THE MIDDLE OF ADMINISTERING. CALLED PHARMACY AND SAID IT WAS OKAY THAT I GAVE AND TO PLACE A NOTE THAT I ADMINISTERED IT BUT UNABLE TO DOCUMENT.
--- NOTE | 2022-08-28 11:36 | NUR ---
DC PLANN[age] YRS OLD MALE PATIENT WAS ADMITTED FROM [facility] ([facility]) WITH A DX OF SEPSIS, UTI AND PNEUMONIA. PATIENT HAS A HX OF INTELLECTUAL DISABILITY HYPOTHYROIDISM, GERD AND QUADRIPLEGIA . CXR SHOWED RIGHT BASILAR INFILTRATE CONCERNING FOR PNEUMONIA. RAPID COVID TEST NEGATIVE. ADMINISTERED IVF, IV ABX ZOSYN. URINE AND BLOOD CULTURE PENDING. CONSULTED WITH CARDIO. DC PLAN TO RETURN TO [facility] . CM TO FOLLOW Addendum: 08/29/22 at 1413 by Becky Alvarado RN DC PLANNING: SEEN BY BIOINFORMATICS SUPPORT SPECIALIST NO ADDITIONAL CARDIAC WORK UP CONTINUE IV ABX ZOSYN. DC PLAN TO RETURN TO [facility] WHEN STABLE CM TO FOLLOW
[2022-08-28] MEDS ORDERED: DEXTROSE 50% 50 ML SYR IVP PRN (11:40)
[2022-08-28] MEDS ORDERED: INSULIN LISPRO SLIDING SCALE 100 UNITS/ML VIAL SUBQ PRN (11:40)
[2022-08-28] MEDS: PIPERACILLIN/TAZOBACTAM 3.375 GM in DEXTROSE 5% 50 ML IV SCH ×2 (12:20→18:18)
--- NOTE | 2022-08-28 14:21 | NUR ---
PT. WITH LOW MIGUEL ANGEL SCALE AT HIGH RISK, CONTINUE TO FOLLOW PRESSURE INJURY PREVENTION INTERVENTIONS. -POSITIONING: TURN AND REPOSITION PATIENT Q 2H OR SOONER USE PILLOWS TO KEEP BONY PROMINENCES FROM DIRECT CONTACT WITH SURFACES USE REPOSITIONING WEDGES TO PROVIDE 30-DEGREE ANGLE FOR SIDE LYING POSITIONS OFFLOADING OR FOAM DRESSING TO ALL TUBING TO PREVENT MEDICAL DEVICES RELATED PRESSURE INJURY -RE-EVALUATING AND MANAGING INCONTINENCE MONITOR SKIN CONDITION DURING POSITION CHANGE DO NOT MASSAGE REDNESS, BONY PROMINENCES FREQUENT EDUARDO-CARE AND PROVIDE BARRIER CREAMS PRN IF SOILING MOISTURE CONTROL BY OFFER BED ABRAMS/URINAL /ABSORBENT PAD TO WICK AND HOLD MOISTURE KEEP SKIN DRY AND PROTECT FROM FRICTION -MANAGE FRICTION/SHEAR/MOBILITY KEEP HOB AT THE LOWEST LEVEL OF ELEVATION NO MORE THAN 30 DEGREE UNLESS OTHERWISE CONTRAINDICATED USE LIFT SHEET OR TRANSFER DEVICE TO MOVE PATIENT AND PREVENT LATERAL SHEER. PROTECT HEELS, ELBOWS BONY PROMINENCES WITH SKIN BERRIES OR FOAM DRESSING IF EXPOSED TO FRICTION OFFLOAD BILATERAL HEELS BY PLACING PILLOWS UNDER CALVES AT ALL TIMES, UNLESS OTHERWISE CONTRAINDICATED -PRESSURE REDISTRIBUTION SURFACE THERAPY FRANCESCO ISOFLEX MATTRESS -NUTRITION: PLEASE FOLLOW RD RECOMMENDATIONS AND OFFER NUTRITION SUPPLEMENTS IF ORDERED. PLEASE CONTACT WOUND CARE NURSE FOR ANY QUESTION AND CHANGE OF WOUND CONDITION.
--- NOTE | 2022-08-28 15:00 | NUR ---
08/28/22 RD INITIAL ASSESSMENT COMPLETED PLEASE REFER TO NUTRITION ASSESSMENT UNDER CARE ACTIVITY FOR ESTIMATED NUTRITIONAL NEEDS. 1. MONITOR NPO STATUS. 2. WHEN/IF MEDICALLY APPROPRIATE, RECOMMEND GLUCERNA 1.2 @ 65 ML/HR TOLERATED -FWF: 150 ML Q6H -START TF AT 20 ML/HR AND INCREASE BY 20 ML Q4H TOLERATED. -AT GOAL RATE, PATIENT WILL RECEIVE 1560 ML VOLUME, 1872 KCAL, 86 GRAMS PROTEIN AND 1858 ML FW. THIS MEETS 94% OF PTS ESTIMATED KCAL NEEDS AND 100% OF PTS ESTIMATED PROTEIN NEEDS. 2. MONITOR GI, GASTRIC RESIDUALS, AND LAB VALUES. 3. RD TO FOLLOW-UP 2-3 DAYS, HIGH RISK REVIEWED BY RON CORTEZ RD
[2022-08-28 16:00] VITALS: BP 98/51
[2022-08-28] MEDS: BLOOD GLUCOSE MONITORING 1 DEV DEV FS SCH ×2 (16:40→21:20)
[2022-08-28 18:15] LABS: BARBITURATE, URINE NEGATIVE ng/ml (NEG <=200); BENZODIAZEPINE, URINE NEGATIVE ng/mL (NEG <=200); CANNABINOID, URINE NEGATIVE ng/mL (NEG <=50); COCAINE, URINE NEGATIVE ng/mL (NEG <=300)
[2022-08-28 18:16] LABS: OPIATE, URINE NEGATIVE ng/mL (NEG <=2000); PHENCYCLIDINE SCREEN,URINE NEGATIVE ng/mL (NEG <=25)
--- NOTE | 2022-08-28 18:52 | NUR ---
EVELYN ANSARI WAS ABLE TO OBTAIN URINE FOR URINE DRUG SCREEN.
--- NOTE | 2022-08-28 19:05 | NUR ---
ENDORSED PT TO FOLDER GLUER OPERATOR NURSE FOR CONTINUITY OF CARE. PT STABLE AT THIS TIME.
[2022-08-28 20:00] VITALS: BP 128/72
--- NOTE | 2022-08-28 22:25 | NUR ---
DUE TO ODE BLUE AND THIS NURSE EVOLVEMENT, PATIENT FEEDING WAS STARTED. NURSING NOTED BLOOD SUGAR WAS NOTED AT 72. PATIENT IS UNABLE TO SPEAK OR USE CALL LIGHT. SIDE RAILS UP X 4 FOR SAFETY AND COMFORT. NURSING WILL FREQUENT THE ROOM FOR ANTICIPATED ASSISTANCE AND HELP. [id number]
[2022-08-29] MEDS: PIPERACILLIN/TAZOBACTAM 3.375 GM in DEXTROSE 5% 50 ML IV SCH ×4 (00:54→17:51)
--- NOTE | 2022-08-29 01:07 | NUR ---
PATIENT STABLE VITALS SIGNS IN NORMAL LIMITS NOT COMPLAINING OF PAIN AT THIS TIME A NEW IV WAS PLACE 22 G AT THE [facility] DIPER WAS CHANGE PATIENT IS INCONTINENT
[2022-08-29] MEDS: NACL 0.9% 1,000 ML IV SCH ×2 (04:21→14:28)
[2022-08-29 05:19] LABS: BASOPHILS % (AUTO) 0.3 % (0.0-2.0); EOSINOPHILS # (AUTO) 0.1 K/uL (0-0.4); EOSINOPHILS % (AUTO) 0.9 % (0.0-4.0); HEMATOCRIT 27.9 % (36-52); HEMOGLOBIN 9.2 g/dL (12.0-18.0); LYMPHOCYTES # (AUTO) 1.2 K/uL (2.0-11.5); LYMPHOCYTES % (AUTO) 17.7 % (20.5-51.1); MEAN CORPUSCULAR HEMOGLOBIN 28 pg (27-31); MEAN CORPUSCULAR HGB CONC 33 g/dL (33-37); MEAN CORPUSCULAR VOLUME 83.2 fL (80-94); MONOCYTES # (AUTO) 0.9 K/uL (0.8-1.0); MONOCYTES % (AUTO) 12.8 % (1.7-9.3); NEUTROPHILS # (AUTO) 4.6 K/uL (1.8-7.7); NEUTROPHILS % (AUTO) 68.3 % (42.2-75.2); PLATELET COUNT (AUTO) 132 K/uL (140-450); RED BLOOD CELL COUNT(AUTO) 3.36 MIL/uL (4.20-6.10); RED CELL DISTRIBUTION WIDTH 15.7 % (11.6-13.7); WHITE BLOOD COUNT (AUTO) 6.7 K/uL (4.8-10.8)
[2022-08-29] MEDS: BLOOD GLUCOSE MONITORING 1 DEV DEV FS SCH ×4 (06:04→21:56)
[2022-08-29 06:44] LABS: ANION GAP 10.9 (8-16); CREATININE 0.7 mg/dL (0.6-1.3); POTASSIUM 3.9 mmol/L (3.5-5.1)
--- NOTE | 2022-08-29 07:25 | NUR ---
RECEIVED REPORT FROM TRANSITION OF CARE SPECIALIST NURSE FOR CONTINUITY OF CARE. PT STABLE AT THIS TIME.
[2022-08-29 08:00] VITALS: BP 109/56
[2022-08-29 08:08] LABS: T4 (THYROXINE) 9.8 ug/dL (4.5-12.0)
[2022-08-29] MEDS: LEVOTHYROXINE 0.1 MG TAB GT SCH (10:12)
[2022-08-29] MEDS: RIVAROXABAN 10 MG TAB GT SCH (10:17)
[2022-08-29] MEDS: PANTOPRAZOLE 40 MG INJ VIAL IVP SCH (10:18)
--- NOTE | 2022-08-29 14:30 | NUR ---
PT RESTING IN BED WITH HIS EYES CLOSED. RISE AND FALL OF CHEST EQUALLY.
[2022-08-29 16:00] VITALS: BP 104/52
--- NOTE | 2022-08-29 17:45 | NUR ---
HUNG A NEW BOTTLE OF GLUCERNIA AND CHANGED OUT THE TUBING.
--- NOTE | 2022-08-29 19:24 | NUR ---
ENDORSED PT TO BUSINESS SUPPORT ADMINISTRATOR NURSE FOR CONTINUITY OF CARE. PT STABLE AT THIS TIME.
--- NOTE | 2022-08-29 19:25 | NUR ---
RECD. RESTING IN BED, AWAKE, A/OX1, NON-VERBAL. RESPIRATION EVEN AND UNLABORED. IV OF NS INFUSING AT 100 ML/HR, RIGHT AC G 20. GT FEEDING OF GLUCERNA 1.2 INFUSING AT 65 ML/HR. SAFETY MEASURES ENFORCED. BED IN THE LOWEST POSITION, SIDE RAILS UP, BED ON ALARM. ON IV ANTIBIOTICS. NO APPEARANCE OF PAIN OR DISCOMFORT NOTED, FLACC -0.
--- NOTE | 2022-08-29 21:00 | NUR ---
VOIDED A LOT IN THE DIAPER. CLEANSED AND DIAPER CHANGED. REPOSITIONED WITH PILLOWS FOR COMFORT.
--- NOTE | 2022-08-29 21:56 | NUR ---
BS CHECKED 100. NO COVERAGE.
--- NOTE | 2022-08-29 23:53 | NUR ---
UNABLE TO SLEEP, MEDICATED WITH AMBIEN PER MD ORDER.
[2022-08-30] VITALS: BP 108/64
[2022-08-30] MEDS: NACL 0.9% 1,000 ML IV SCH ×3 (00:10→20:10)
--- NOTE | 2022-08-30 00:53 | NUR ---
SLEEPING COMFORTABLY IN BED. RESPIRATION EVEN AND UNLABORED.
[2022-08-30] MEDS: PIPERACILLIN/TAZOBACTAM 3.375 GM in DEXTROSE 5% 50 ML IV SCH ×5 (01:00→23:33)
--- NOTE | 2022-08-30 02:30 | NUR ---
STILL SLEEPING COMFORTABLY IN BED. RESPIRATION EVEN AND UNLABORED.
--- NOTE | 2022-08-30 04:30 | NUR ---
VS STABLE. TOLERATED WELL ALL MEDICATIONS ADMINISTERED.
[2022-08-30 05:42] LABS: BASOPHILS % (AUTO) 0.5 % (0.0-2.0); EOSINOPHILS # (AUTO) 0.2 K/uL (0-0.4); EOSINOPHILS % (AUTO) 4.8 % (0.0-4.0); HEMATOCRIT 27.5 % (36-52); LYMPHOCYTES # (AUTO) 0.8 K/uL (2.0-11.5); LYMPHOCYTES % (AUTO) 24.7 % (20.5-51.1); MEAN CORPUSCULAR HEMOGLOBIN 27 pg (27-31); MEAN CORPUSCULAR HGB CONC 33 g/dL (33-37); MEAN CORPUSCULAR VOLUME 83.6 fL (80-94); MONOCYTES # (AUTO) 0.5 K/uL (0.8-1.0); MONOCYTES % (AUTO) 15.9 % (1.7-9.3); NEUTROPHILS # (AUTO) 1.8 K/uL (1.8-7.7); NEUTROPHILS % (AUTO) 54.1 % (42.2-75.2); PLATELET COUNT (AUTO) 135 K/uL (140-450); RED BLOOD CELL COUNT(AUTO) 3.29 MIL/uL (4.20-6.10); RED CELL DISTRIBUTION WIDTH 15.1 % (11.6-13.7); WHITE BLOOD COUNT (AUTO) 3.3 K/uL (4.8-10.8)
[2022-08-30 05:45] LABS: ANION GAP 10.2 (8-16); CARBON DIOXIDE 28.5 mmol/L (21-32); CREATININE 0.7 mg/dL (0.6-1.3); POTASSIUM 3.7 mmol/L (3.5-5.1)
--- NOTE | 2022-08-30 06:30 | NUR ---
ON HIS RIGHT SIDE, STILL SLEEPING COMFORTABLY. CONDITION REMAIN STABLE.
--- NOTE | 2022-08-30 07:05 | NUR ---
RECEIVED REPORT FROM NIGHT NURSE DAYNE FORD FOR CONTINUITY OF CARE. INITIAL ASSESSMENT DONE. IVF INFUSING WELL. G-TUBE INTACT AND PATENT. NOT IN ANY DISTRESS NOTED. CALL LIGHT KEPT WITHIN REACH. WILL CONTINUE TO MONITOR.
--- NOTE | 2022-08-30 07:10 | NUR ---
ENDORSED TO CECELIA FORD FOR CONTINUITY OF CARE.
[2022-08-30] MEDS: BLOOD GLUCOSE MONITORING 1 DEV DEV FS SCH ×4 (07:30→20:23)
[2022-08-30 08:00] VITALS: BP 98/51
[2022-08-30] MEDS: LEVOTHYROXINE 0.1 MG TAB GT SCH (09:36)
[2022-08-30] MEDS: PANTOPRAZOLE 40 MG INJ VIAL IVP SCH (09:36)
[2022-08-30] MEDS: RIVAROXABAN 10 MG TAB GT SCH (09:36)
--- NOTE | 2022-08-30 09:36 | NUR ---
SCHEDULED MEDICATIONS GIVEN. TOLERATED WELL.
--- NOTE | 2022-08-30 09:37 | NUR ---
PROTONIX IVP WAS GIVEN BY TABATHA DANIELLE. TOLERATED WELL.
--- NOTE | 2022-08-30 11:52 | NUR ---
IV ABT ZOSYN WAS GIVEN TABATHA DANIELLE. TOLERATED WELL.
--- NOTE | 2022-08-30 11:56 | NUR ---
BS CHECKED 101. NO COVERAGE NEEDED.
--- NOTE | 2022-08-30 12:21 | NUR ---
DC PLANNING OUTREACHED TO [facility] ADMIN, HENRRY [phone], TO GATHER COLLAT INFO PT IS NONVERBAL. DORIS UNABLE TO REACH HENRRY, SANTINO LEFT REQUESTING A RETURN PHONE CALL. Addendum: 08/31/22 at 0831 by Terri Lanza SS PATIENT IS NONVERBAL, THEREFORE DORIS REACHED OUT TO [facility]. DORIS SPOKE TO PERLA SALES, [facility] ADMIN. PERLA REPORTS THAT PATIENT HAS BEEN WITH [facility] SINCE OCTOBER 27, 2011. PT IS [facility] CONNECTED, [facility] IS [place] [place], . PATIENT IS REPORTED TO BE NON-VERBAL. PT IS FOLLOWED BY DR. CY [facility] FACILITY. PATIENT HAS [employer] FAMILY ENGAGEMENT [phone] WHO IS REPORTED TO HAVE BEEN NOTIFIED OF PTS ADMISSION. PERLA DELGADO DC PLAN IS FOR PATIENT TO RETURN HOME TO [facility] ONCE CLINICALLY STABLE.[place]. SALES REPORTS FACILITY PROVIDES TRANSPORTATION AND CAN REACH GIULIANO ADAIR, FOR TRANSPORTATION ONCE STABLE TO [place].
[2022-08-30 16:00] VITALS: BP 96/55
--- NOTE | 2022-08-30 17:08 | NUR ---
BS CHECKED 102. NO COVERAGE NEEDED.
--- NOTE | 2022-08-30 18:05 | NUR ---
IV ZOSYN GIVEN BY TABATHA DANIELLE. TOLERATED WELL.
--- NOTE | 2022-08-30 19:15 | NUR ---
ENDORSED TO NIGHT NURSE SONIA FOR CONTINUITY OF CARE. REMAINS STABLE.
--- NOTE | 2022-08-30 19:20 | NUR ---
RECEIVED REPORT FROM DAY SHIFT RN FOR CONTINUITY OF CARE. PT IS RESTING IN BED. NOT IN ANY DISTRESS. PT HAS 22 GAUGE ON RIGHT WRIST SALINE LOCK. PT HAS 20 GAUGE ON RIGHT AC RUNNING NS 100 CC/HR. PT IS ON TUBE FEEDING WITH GLUCERNA 1.2 65 CC/HR WITH FWF 150 Q6H. BED AT THE LOWEST POSITION. HEAD OF THE BED RAISED. WILL CONTINUE TO MONITOR THE PT.
[2022-08-30 20:00] VITALS: BP 113/57
--- NOTE | 2022-08-31 01:46 | NUR ---
OBSERVED PT. PT IS AWAKE. NOT IN ANY ACUTE DISTRESS. FEEDING AND IVF RUNNING PER MD ORDER. SAFETY PRECAUTIONS TAKEN. WILL CONTINUE TO MONITOR THE PT.
[2022-08-31 04:00] VITALS: BP 127/61
--- NOTE | 2022-08-31 04:00 | NUR ---
PT IS RESTING IN BED. NOT IN ANY ACUTE DISTRESS. FEEDING WAS CHANGED. SAFETY PRECAUTIONS TAKEN. WILL CONTINUE TO MONITOR THE PT.
[2022-08-31] MEDS: PIPERACILLIN/TAZOBACTAM 3.375 GM in DEXTROSE 5% 50 ML IV SCH (05:09)
[2022-08-31] MEDS: NACL 0.9% 1,000 ML IV SCH (05:12)
[2022-08-31 05:22] LABS: CARBON DIOXIDE 28.9 mmol/L (21-32); CREATININE 0.8 mg/dL (0.6-1.3); POTASSIUM 3.9 mmol/L (3.5-5.1)
[2022-08-31 05:27] LABS: BASOPHILS % (AUTO) 0.9 % (0.0-2.0); EOSINOPHILS # (AUTO) 0.2 K/uL (0-0.4); EOSINOPHILS % (AUTO) 6.6 % (0.0-4.0); HEMATOCRIT 28.8 % (36-52); HEMOGLOBIN 9.4 g/dL (12.0-18.0); LYMPHOCYTES # (AUTO) 0.9 K/uL (2.0-11.5); LYMPHOCYTES % (AUTO) 31.6 % (20.5-51.1); MEAN CORPUSCULAR HEMOGLOBIN 27 pg (27-31); MEAN CORPUSCULAR HGB CONC 33 g/dL (33-37); MEAN CORPUSCULAR VOLUME 83.6 fL (80-94); MONOCYTES # (AUTO) 0.5 K/uL (0.8-1.0); NEUTROPHILS # (AUTO) 1.3 K/uL (1.8-7.7); NEUTROPHILS % (AUTO) 44.9 % (42.2-75.2); PLATELET COUNT (AUTO) 160 K/uL (140-450); RED BLOOD CELL COUNT(AUTO) 3.45 MIL/uL (4.20-6.10); RED CELL DISTRIBUTION WIDTH 15.2 % (11.6-13.7)
--- NOTE | 2022-08-31 07:10 | NUR ---
RECEIVED REPORT FROM NIGHT NURSE SONIA FOR CONTINUITY OF CARE. INITIAL ASSESSMENT DONE. G-TUBE INTACT, PATENT. IVF INFUSING WELL. NOT IN ANY SIGNS OF DISTRESS NOTED. CALL LIGHT KEPT WITHIN REACH. WILL CONTINUE TO MONITOR.
--- NOTE | 2022-08-31 07:14 | NUR ---
ENDORSED PT TO DAY SHIFT RN FOR CONTINUITY OF CARE. PT IS STABLE.
[2022-08-31] MEDS: BLOOD GLUCOSE MONITORING 1 DEV DEV FS SCH ×2 (07:30→11:36)
[2022-08-31 08:00] VITALS: BP 118/71
[2022-08-31] MEDS: LEVOTHYROXINE 0.1 MG TAB GT SCH (08:30)
[2022-08-31] MEDS: RIVAROXABAN 10 MG TAB GT SCH (08:30)
--- NOTE | 2022-08-31 08:30 | NUR ---
SCHEDULED MEDICATIONS GIVEN. TOLERATING WELL.
[2022-08-31] MEDS ORDERED: AMOX-999 PO (08:32)
[2022-08-31] MEDS: PANTOPRAZOLE 40 MG INJ VIAL IVP SCH (08:55)
--- NOTE | 2022-08-31 08:55 | NUR ---
SKIN ASSESSMENT DONE WITH PRIMARY NURSE CECELIA, CLAUDIA SKIN OPEN, PT. INCONTINENT BOWEL AND BLADDER, SKIN MOIST, NO REDNESS, GOOD EDUARDO CARE PROVIDES, SKIN BARRIERS LOTION APPLY, FOAM DRESSING APPLY TO SACRAL FOR PREVENTION.
--- NOTE | 2022-08-31 11:10 | NUR ---
CALLED [facility] SPOKE TO HUMAN RESOURCES RECEPTIONIST. PT CLEARED FOR DISCHARGE. MADE ARRANGEMENT FOR TRANSPORTATION. ETA 11:45.
--- NOTE | 2022-08-31 11:36 | NUR ---
BS CHECKED 97. NO COVERAGE NEEDED.
--- NOTE | 2022-08-31 12:22 | NUR ---
PT LEFT. DISCHARGE BACK TO [facility] PER WHEELCHAIR. TRANSPORTED BY PRIVATE VEHICLE. ALERT, NON VERBAL. G-TUBE INTACT AND PATENT. ID BAND AND IV REMOVED. DISCHARGED PAPERWORKS GIVEN TO BOND CLERK. SKIN INTACT. ALL PERSONAL BELONGINGS TAKEN. NOT IN ANY DISTRESS NOTED. REMAINS STABLE.
== END 2022-08-31 12:22 | DRG 720 ==
LOC: MED 21:45 → MMU 08-28 01:51 → MTU 08-28 06:48
PROVIDERS: ADMIT Family Medicine; ATTEND Family Medicine
DX: A41.9 Sepsis, unspecified organism (principal); J69.0 Pneumonitis due to inhalation of food and vomit; E87.20 Acidosis, unspecified; R53.2 Functional quadriplegia; E44.1 Mild protein-calorie malnutrition; E83.39 Other disorders of phosphorus metabolism; E83.51 Hypocalcemia; N39.0 Urinary tract infection, site not specified; E83.42 Hypomagnesemia; B96.20 Unspecified Escherichia coli [E. coli] as the cause of diseases classified elsewhere; R73.9 Hyperglycemia, unspecified; E78.2 Mixed hyperlipidemia; Z68.23 Body mass index [BMI] 23.0-23.9, adult; K21.9 Gastro-esophageal reflux disease without esophagitis; E03.9 Hypothyroidism, unspecified; F79 Unspecified intellectual disabilities; Z88.1 Allergy status to other antibiotic agents; Z20.822 Contact with and (suspected) exposure to COVID-19
CPT/HCPCS: 36415; 71045; 80048; 80053; 80305; 81001; 82150; 82948; 83036; 83605; 83690; 83735; 83880; 84100; 84436; 84439; 84443; 84479; 84484; 85025; 85610; 85730; 87040; 87081; 87086; 93005; 96361; 96365; 99291; C9113; J1815; J2270; J2543; J7060; Q0092

== ENCOUNTER 2023-01-04 18:11 | Inpatient (IN) | payer MEDICAID, MEDICARE ==
[~2023-01-04] VITALS: Ht 175.3 cm; Wt 74.8 kg
[~2023-01-04 18:11] MED LIST changes: +AMOX-999 PO; +ASCO500T95 PO; -BISA10SU27 RC; +CHOL500040 PO; -CIPR500T4 PO; +LACT1CAP63 PO; +LACT1CAP70 PO; +LOTC TP; -METO-485 GT; +METO10TA10 PO; +ONDA-188 PO; +PRON INH; -SULF-59 PO; -SYN.1 GT; +ZINC10OI TP; -ZINC113C4 TP; +ZINC220C28 PO; -ZINC220C29 PO; +[UNRECOGNIZED DRUG - CODE] RC
[2023-01-04 18:22] VITALS: BP 116/66; PULSE 134; RESP 22; TEMP 100.4; O2SAT 94
[2023-01-04] MEDS ORDERED: NACL 0.9% 2,250 ML IV ONE (18:40)
[2023-01-04 19:00] LABS: BASOPHILS % (AUTO) 0.2 % (0.0-2.0); HEMATOCRIT 39.4 % (36-52); HEMOGLOBIN 12.7 g/dL (12.0-18.0); LYMPHOCYTES # (AUTO) 0.5 K/uL (2.0-11.5); MEAN CORPUSCULAR HEMOGLOBIN 26 pg (27-31); MEAN CORPUSCULAR HGB CONC 32 g/dL (33-37); MEAN CORPUSCULAR VOLUME 78.9 fL (80-94); MONOCYTES % (AUTO) 11.6 % (1.7-9.3); NEUTROPHILS % (AUTO) 82.2 % (42.2-75.2); PLATELET COUNT (AUTO) 201 K/uL (140-450); RED BLOOD CELL COUNT(AUTO) 4.99 MIL/uL (4.20-6.10); RED CELL DISTRIBUTION WIDTH 15.8 % (11.6-13.7); WHITE BLOOD COUNT (AUTO) 8.5 K/uL (4.8-10.8)
[2023-01-04 19:01] LABS: BLOOD GAS PH 7.519 (7.35-7.45)
[2023-01-04 19:02] LABS: BLOOD GAS BASE EXCESS 2.3 mmol/L (-2.0-2.0); BLOOD GAS HCO3 24.5 mmol/L (22-26); BLOOD GAS O2 SAT% 94.7 % (92.0-98.5); BLOOD GAS PCO2 30.8 mmHg (35-45); BLOOD GAS PO2 64.6 mmHg (75-100)
[2023-01-04 19:16] LABS: INR 1.04 (0.8-1.2); PARTIAL THROMBOPLASTIN TIME 28.2 secs (22-35.6); PROTHROMBIN TIME 10.9 secs (10.8-13.4)
[2023-01-04 19:19] LABS: ALBUMIN 3.4 g/dL (3.4-5.0); ANION GAP 11.7 (8-16); CARBON DIOXIDE 30.3 mmol/L (21-32); TOTAL BILIRUBIN 0.5 mg/dL (0.0-1.0); TOTAL PROTEIN, SERUM 7.8 g/dL (6.4-8.2)
[2023-01-04 19:23] LABS: CREATINE KINASE, TOTAL 39 U/L (39-308)
[2023-01-04 19:28] LABS: LACTIC ACID 2.5 mmol/L (0.4-2.0)
[2023-01-04 19:29] LABS: FLU A ANTIGEN negative (NEGATIVE); FLU B ANTIGEN NEGATIVE (NEGATIVE)
[2023-01-04] MEDS ORDERED: CEFEPIME 2,000 MG in DEXTROSE 5% 100 ML IV ONE (20:35)
[2023-01-04] MEDS ORDERED: CEFEPIME 2,000 MG VIAL IV ONE (20:39)
[2023-01-04 21:24] LABS: APPEARANCE,URINE CLEAR (CLEAR); BILIRUBIN,URINE NEGATIVE (NEGATIVE); BLOOD, URINE NEGATIVE (NEGATIVE); COLOR,URINE YELLOW (YELLOW); LEUKOCYTE ESTERASE ,URINE NEGATIVE (NEGATIVE); NITRITE, URINE NEGATIVE (NEGATIVE); PH,URINE 7.5 (5.0-9.0); PROTEIN,URINE NEGATIVE (NEGATIVE); UGLUCOSE NEGATIVE (NEGATIVE); UROBILINOGEN,URINE 0.2 EU/dL (0.2 - 1)
[2023-01-04] MEDS ORDERED: ALBUTEROL 0.083% 2.5 MG/3 ML NEBU INH PRN (22:25)
[2023-01-04] MEDS ORDERED: MAG SULF 2000 MG/WATER PREMIX 50 ML IV PRN (22:30)
[2023-01-04] MEDS ORDERED: MORPHINE SULFATE 2 MG/ML SYR IVP PRN (22:30)
[2023-01-04] MEDS ORDERED: POTASSIUM CHLORIDE 10 MEQ TABER PO PRN (22:30)
[2023-01-04] MEDS ORDERED: DOCUSATE SODIUM 100 MG GELCAP PO PRN (22:30)
[2023-01-04] MEDS ORDERED: ACETAMINOPHEN 325 MG TAB PO PRN (22:30)
[2023-01-04] MEDS ORDERED: LORazepam 2 MG/ML VIAL IVP PRN (22:30)
[2023-01-04] MEDS ORDERED: ZOLPIDEM 10 MG TAB PO PRN (22:30)
[2023-01-04] MEDS ORDERED: ONDANSETRON 4 MG/2 ML VIAL IVP PRN (22:30)
[2023-01-05] VITALS (11 sets, daily range): BP systolic 112–122; BP diastolic 59–80; PULSE 73–122; RESP 18–21; TEMP 97.5–100.4; O2SAT 90–100
[2023-01-05] MEDS ORDERED: PIPERACILLIN/TAZOBACTAM 3.375 GM VIAL IV ONE (02:43)
[2023-01-05] MEDS: PIPERACILLIN/TAZOBACTAM 3.375 GM in DEXTROSE 5% 50 ML IV SCH ×3 (05:31→21:59)
[2023-01-05 06:32] LABS: BASOPHILS # (AUTO) 0.1 K/uL (0.00-0.22); EOSINOPHILS % (AUTO) 0.1 % (0.0-4.0); HEMATOCRIT 36.3 % (36-52); HEMOGLOBIN 11.6 g/dL (12.0-18.0); LYMPHOCYTES # (AUTO) 1.3 K/uL (2.0-11.5); LYMPHOCYTES % (AUTO) 19.1 % (20.5-51.1); MEAN CORPUSCULAR HEMOGLOBIN 26 pg (27-31); MEAN CORPUSCULAR HGB CONC 32 g/dL (33-37); MEAN CORPUSCULAR VOLUME 79.6 fL (80-94); MONOCYTES # (AUTO) 0.8 K/uL (0.8-1.0); NEUTROPHILS # (AUTO) 4.8 K/uL (1.8-7.7); NEUTROPHILS % (AUTO) 67.8 % (42.2-75.2); PLATELET COUNT (AUTO) 177 K/uL (140-450); RED BLOOD CELL COUNT(AUTO) 4.56 MIL/uL (4.20-6.10); RED CELL DISTRIBUTION WIDTH 15.7 % (11.6-13.7)
[2023-01-05 06:53] LABS: ANION GAP 12.3 (8-16); CALCIUM 8.7 mg/dL (8.5-10.1); CARBON DIOXIDE 27.5 mmol/L (21-32); CREATININE 0.9 mg/dL (0.6-1.3); POTASSIUM 3.8 mmol/L (3.5-5.1)
[2023-01-05] MEDS ORDERED: remdesivir COMMUNICATION ORDER 1 EA MISC MC PRN (07:20)
[2023-01-05] MEDS ORDERED: LEVOTHYROXINE 0.1 MG TAB GT SCH (09:00)
[2023-01-05] MEDS: DEXAMETHASONE 4 MG/ML VIAL IVP SCH (10:19)
[2023-01-05] MEDS ORDERED: remdesivir CLINICAL MONITORING 1 EA MISC MC PRN (12:45)
[2023-01-05] MEDS ORDERED: REMDESIVIR. 200 MG in NACL 0.9% 100 ML IV SCH (13:30)
[2023-01-06] VITALS (10 sets, daily range): BP systolic 101–129; BP diastolic 55–69; PULSE 80–123; RESP 17–20; TEMP 96.3–98.8; O2SAT 91–99
[2023-01-06] MEDS: PIPERACILLIN/TAZOBACTAM 3.375 GM in DEXTROSE 5% 50 ML IV SCH ×3 (06:10→21:42)
[2023-01-06] MEDS: LEVOTHYROXINE 0.1 MG TAB PO SCH (06:13)
[2023-01-06 06:22] LABS: HEMATOCRIT 35.3 % (36-52); HEMOGLOBIN 11.4 g/dL (12.0-18.0); MEAN CORPUSCULAR HEMOGLOBIN 25 pg (27-31); MEAN CORPUSCULAR HGB CONC 32 g/dL (33-37); MEAN CORPUSCULAR VOLUME 78.5 fL (80-94); PLATELET COUNT (AUTO) 172 K/uL (140-450); RED BLOOD CELL COUNT(AUTO) 4.49 MIL/uL (4.20-6.10); RED CELL DISTRIBUTION WIDTH 15.4 % (11.6-13.7); WHITE BLOOD COUNT (AUTO) 4.4 K/uL (4.8-10.8)
[2023-01-06 06:55] LABS: ANION GAP 13.3 (8-16); CALCIUM 8.8 mg/dL (8.5-10.1); CARBON DIOXIDE 25.3 mmol/L (21-32); CREATININE 0.9 mg/dL (0.6-1.3); POTASSIUM 3.6 mmol/L (3.5-5.1)
[2023-01-06 06:58] LABS: BASOPHILS % (MANUAL) 0 % (0-2); EOSINOPHILS % (MANUAL) 0 % (0-4); LYMPHOCYTES % (MANUAL) 8 % (20-46); MONOCYTES % (MANUAL) 7 % (5-12); PLATELET ESTIMATE ADEQUATE
[2023-01-06] MEDS: POLYETHYLENE GLYCOL 17 GM/PKT GT SCH (08:45)
[2023-01-06] MEDS: DEXAMETHASONE 4 MG/ML VIAL IVP SCH (08:46)
[2023-01-06 10:22] LABS: ALBUMIN 2.9 g/dL (3.4-5.0); BILIRUBIN,DIRECT 0.2 mg/dL (0.0-0.3); TOTAL BILIRUBIN 0.5 mg/dL (0.0-1.0)
[2023-01-06] MEDS: REMDESIVIR. 100 MG in NACL 0.9% 100 ML IV SCH (13:02)
[2023-01-07] VITALS: BP 112/56; PULSE 82; RESP 17; TEMP 97; O2SAT 93
[2023-01-07 04:00] VITALS: BP 100/58; PULSE 73; PULSE 82; RESP 18; TEMP 96.7; O2SAT 95
[2023-01-07] MEDS: PIPERACILLIN/TAZOBACTAM 3.375 GM in DEXTROSE 5% 50 ML IV SCH ×3 (05:59→20:58)
[2023-01-07] MEDS: LEVOTHYROXINE 0.1 MG TAB PO SCH (06:02)
[2023-01-07 06:52] LABS: HEMATOCRIT 35.7 % (36-52); HEMOGLOBIN 11.6 g/dL (12.0-18.0); LYMPHOCYTES # (AUTO) 0.6 K/uL (2.0-11.5); LYMPHOCYTES % (AUTO) 9.7 % (20.5-51.1); MEAN CORPUSCULAR HEMOGLOBIN 26 pg (27-31); MEAN CORPUSCULAR HGB CONC 33 g/dL (33-37); MEAN CORPUSCULAR VOLUME 78.6 fL (80-94); MONOCYTES # (AUTO) 0.5 K/uL (0.8-1.0); MONOCYTES % (AUTO) 8.9 % (1.7-9.3); NEUTROPHILS # (AUTO) 4.6 K/uL (1.8-7.7); NEUTROPHILS % (AUTO) 81.4 % (42.2-75.2); PLATELET COUNT (AUTO) 205 K/uL (140-450); RED BLOOD CELL COUNT(AUTO) 4.54 MIL/uL (4.20-6.10); RED CELL DISTRIBUTION WIDTH 15.5 % (11.6-13.7); WHITE BLOOD COUNT (AUTO) 5.7 K/uL (4.8-10.8)
[2023-01-07 07:04] LABS: ANION GAP 11.6 (8-16); CALCIUM 8.7 mg/dL (8.5-10.1); CARBON DIOXIDE 28.3 mmol/L (21-32); POTASSIUM 3.9 mmol/L (3.5-5.1)
[2023-01-07 07:36] LABS: ALBUMIN 2.8 g/dL (3.4-5.0); BILIRUBIN,DIRECT 0.2 mg/dL (0.0-0.3); TOTAL BILIRUBIN 0.4 mg/dL (0.0-1.0); TOTAL PROTEIN, SERUM 6.9 g/dL (6.4-8.2)
[2023-01-07 08:00] VITALS: BP 127/75; PULSE 60; PULSE 82; PULSE 92; PULSE 93; RESP 18; RESP 19; TEMP 97.6; O2SAT 95; O2SAT 96; O2SAT 99
[2023-01-07] MEDS: DEXAMETHASONE 4 MG/ML VIAL IVP SCH (09:00)
[2023-01-07 12:00] VITALS: BP 122/71; PULSE 85; RESP 18; TEMP 98; O2SAT 96
[2023-01-07] MEDS: REMDESIVIR. 100 MG in NACL 0.9% 100 ML IV SCH (13:25)
[2023-01-07 16:00] VITALS: BP 106/56; PULSE 72; RESP 18; TEMP 97.8; O2SAT 97
[2023-01-07 20:00] VITALS: BP 111/55; PULSE 80; RESP 20; TEMP 96.5; O2SAT 95
[2023-01-08] VITALS (7 sets, daily range): BP systolic 107–116; BP diastolic 45–66; PULSE 67–92; RESP 18–20; TEMP 96.7–97.6; O2SAT 92–99
[2023-01-08] MEDS: PIPERACILLIN/TAZOBACTAM 3.375 GM in DEXTROSE 5% 50 ML IV SCH ×3 (05:22→21:41)
[2023-01-08] MEDS: LEVOTHYROXINE 0.1 MG TAB PO SCH (05:39)
[2023-01-08 06:44] LABS: ANION GAP 10.3 (8-16); CALCIUM 8.3 mg/dL (8.5-10.1); CARBON DIOXIDE 29.7 mmol/L (21-32)
[2023-01-08 06:49] LABS: BASOPHILS % (AUTO) 0.2 % (0.0-2.0); HEMOGLOBIN 11.3 g/dL (12.0-18.0); LYMPHOCYTES # (AUTO) 0.9 K/uL (2.0-11.5); LYMPHOCYTES % (AUTO) 15.2 % (20.5-51.1); MEAN CORPUSCULAR HEMOGLOBIN 25 pg (27-31); MEAN CORPUSCULAR HGB CONC 32 g/dL (33-37); MEAN CORPUSCULAR VOLUME 78.3 fL (80-94); MONOCYTES # (AUTO) 0.6 K/uL (0.8-1.0); MONOCYTES % (AUTO) 11.6 % (1.7-9.3); NEUTROPHILS # (AUTO) 4.1 K/uL (1.8-7.7); PLATELET COUNT (AUTO) 210 K/uL (140-450); RED BLOOD CELL COUNT(AUTO) 4.47 MIL/uL (4.20-6.10); RED CELL DISTRIBUTION WIDTH 15.6 % (11.6-13.7); WHITE BLOOD COUNT (AUTO) 5.6 K/uL (4.8-10.8)
[2023-01-08 07:00] LABS: ALBUMIN 2.6 g/dL (3.4-5.0); BILIRUBIN,DIRECT 0.1 mg/dL (0.0-0.3); TOTAL BILIRUBIN 0.3 mg/dL (0.0-1.0); TOTAL PROTEIN, SERUM 6.3 g/dL (6.4-8.2)
[2023-01-08] MEDS: DEXAMETHASONE 4 MG/ML VIAL IVP SCH (09:59)
[2023-01-08] MEDS: POLYETHYLENE GLYCOL 17 GM/PKT GT SCH (09:59)
[2023-01-08] MEDS: REMDESIVIR. 100 MG in NACL 0.9% 100 ML IV SCH (13:31)
[2023-01-09 02:00] VITALS: O2SAT 94
[2023-01-09 04:00] VITALS: BP 114/62; PULSE 84; RESP 20; TEMP 96.8; O2SAT 94
[2023-01-09] MEDS: PIPERACILLIN/TAZOBACTAM 3.375 GM in DEXTROSE 5% 50 ML IV SCH ×2 (05:39→13:00)
[2023-01-09] MEDS: LEVOTHYROXINE 0.1 MG TAB PO SCH (05:40)
[2023-01-09 07:26] LABS: ALBUMIN 2.6 g/dL (3.4-5.0); BILIRUBIN,DIRECT 0.1 mg/dL (0.0-0.3); TOTAL BILIRUBIN 0.3 mg/dL (0.0-1.0); TOTAL PROTEIN, SERUM 6.3 g/dL (6.4-8.2)
[2023-01-09 07:29] LABS: ANION GAP 7.9 (8-16); CALCIUM 8.5 mg/dL (8.5-10.1); CREATININE 0.7 mg/dL (0.6-1.3); POTASSIUM 3.9 mmol/L (3.5-5.1)
[2023-01-09 07:30] LABS: BASOPHILS % (AUTO) 0.2 % (0.0-2.0); EOSINOPHILS # (AUTO) 0.1 K/uL (0-0.4); EOSINOPHILS % (AUTO) 1.7 % (0.0-4.0); HEMATOCRIT 35.3 % (36-52); HEMOGLOBIN 11.5 g/dL (12.0-18.0); LYMPHOCYTES # (AUTO) 1.6 K/uL (2.0-11.5); MEAN CORPUSCULAR HEMOGLOBIN 25 pg (27-31); MEAN CORPUSCULAR HGB CONC 33 g/dL (33-37); MEAN CORPUSCULAR VOLUME 77.9 fL (80-94); MONOCYTES # (AUTO) 0.5 K/uL (0.8-1.0); MONOCYTES % (AUTO) 10.3 % (1.7-9.3); NEUTROPHILS % (AUTO) 56.8 % (42.2-75.2); PLATELET COUNT (AUTO) 201 K/uL (140-450); RED BLOOD CELL COUNT(AUTO) 4.53 MIL/uL (4.20-6.10); RED CELL DISTRIBUTION WIDTH 15.1 % (11.6-13.7); WHITE BLOOD COUNT (AUTO) 5.3 K/uL (4.8-10.8)
[2023-01-09 08:00] VITALS: BP 116/78; PULSE 78; RESP 18; RESP 20; TEMP 97.3; O2SAT 94
[2023-01-09] MEDS: DEXAMETHASONE 4 MG/ML VIAL IVP SCH (08:59)
[2023-01-09] MEDS ORDERED: DEC1 PO (09:22)
[2023-01-09] MEDS ORDERED: AMOX-999 PO (09:22)
[2023-01-09 10:24] VITALS: PULSE 87; RESP 20; O2SAT 93
[2023-01-09] MEDS: REMDESIVIR. 100 MG in NACL 0.9% 100 ML IV SCH (12:43)
[2023-01-09 16:00] VITALS: BP 100/50; PULSE 79; RESP 20; TEMP 97.1; O2SAT 95
== END 2023-01-09 18:50 | DRG 720 ==
LOC: MED 18:11 → MTU 22:22
PROVIDERS: ADMIT Family Medicine; ATTEND Family Medicine
PROC: XW033E5 Introduction of Remdesivir Anti-infective into Peripheral Vein, Percutaneous Approach, New Technology Group 5 (ICD-10-PCS; principal; 2023-01-05)
DX: A41.89 Other specified sepsis (principal); J96.21 Acute and chronic respiratory failure with hypoxia; J12.82 Pneumonia due to coronavirus disease 2019; G82.50 Quadriplegia, unspecified; U07.1 COVID-19; E43 Unspecified severe protein-calorie malnutrition; E87.3 Alkalosis; E87.8 Other disorders of electrolyte and fluid balance, not elsewhere classified; E87.0 Hyperosmolality and hypernatremia; R13.10 Dysphagia, unspecified; E11.9 Type 2 diabetes mellitus without complications; E03.9 Hypothyroidism, unspecified; K21.9 Gastro-esophageal reflux disease without esophagitis; N40.0 Benign prostatic hyperplasia without lower urinary tract symptoms; Z79.899 Other long term (current) drug therapy; Z88.1 Allergy status to other antibiotic agents; Z93.1 Gastrostomy status; Z68.24 Body mass index [BMI] 24.0-24.9, adult
CPT/HCPCS: 36415; 36600; 71045; 80048; 80053; 80076; 81003; 82550; 82553; 82803; 83605; 83735; 83874; 83880; 84484; 85025; 85610; 85730; 87040; 87081; 87086; 93005; 96365; 99285; J0692; J1100; J1644; J2543; J7060

== ENCOUNTER 2023-05-12 09:22 | Inpatient (IN) | payer OTHER, MEDICAID, MEDICARE ==
[~2023-05-12] VITALS: Ht 170.2 cm; Wt 67.1 kg
[~2023-05-12 09:22] MED LIST changes: +DEC1 PO
[2023-05-12 09:25] VITALS: BP 105/61; PULSE 103; RESP 20; TEMP 98; O2SAT 95
[2023-05-12] MEDS ORDERED: NACL 0.9% 500 ML IV SCH (09:50)
[2023-05-12 10:09] LABS: BLOOD GAS BASE EXCESS 2.2 mmol/L (-2.0-2.0); BLOOD GAS HCO3 26.2 mmol/L (22-26); BLOOD GAS O2 SAT% 95.1 % (92.0-98.5); BLOOD GAS PCO2 38.6 mmHg (35-45); BLOOD GAS PO2 74.2 mmHg (75-100)
[2023-05-12 10:34] LABS: APPEARANCE,URINE SL CLOUDY (CLEAR); BILIRUBIN,URINE NEGATIVE (NEGATIVE); BLOOD, URINE 1+ (NEGATIVE); COLOR,URINE YELLOW (YELLOW); LEUKOCYTE ESTERASE ,URINE 3+ (NEGATIVE); NITRITE, URINE POSITIVE (NEGATIVE); PROTEIN,URINE 1+ (NEGATIVE); UGLUCOSE NEGATIVE (NEGATIVE); UROBILINOGEN,URINE 0.2 EU/dL (0.2 - 1)
[2023-05-12 10:38] LABS: BACTERIA,URINE 3+ /HPF (None Seen); RBC,URINE 0-5 /HPF (0-5); WBC,URINE 16-25 (MOD) /HPF (0-5)
[2023-05-12 10:39] LABS: MUCUS,URINE None Seen /LPF (None Seen); SQUAMOUS EPITHELIAL CELL,UR 4-10 (MOD) /LPF (0-3 (FEW))
[2023-05-12 10:41] LABS: CALCIUM 8.3 mg/dL (8.5-10.1); CARBON DIOXIDE 28.7 mmol/L (21-32); CREATININE 0.8 mg/dL (0.6-1.3); POTASSIUM 3.7 mmol/L (3.5-5.1)
[2023-05-12 10:50] LABS: ALANINE AMINOTRANSFERASE 12 U/L (12-78); ALBUMIN 2.4 g/dL (3.4-5.0); ALKALINE PHOSPHATASE 82 U/L (50-136); ASPARTATE AMINOTRANSFERASE 14 U/L (15-37); BILIRUBIN,DIRECT 0.2 mg/dL (0.0-0.3); LACTIC ACID 1.8 mmol/L (0.4-2.0); TOTAL BILIRUBIN 0.4 mg/dL (0.0-1.0); TOTAL PROTEIN, SERUM 6.9 g/dL (6.4-8.2)
[2023-05-12 11:06] LABS: FLU A ANTIGEN negative (NEGATIVE); FLU B ANTIGEN NEGATIVE (NEGATIVE); RSV NEGATIVE (NEGATIVE)
[2023-05-12] MEDS: AZITHROMYCIN 500 MG in DEXTROSE 5% 250 ML IV SCH (11:50)
[2023-05-12] MEDS ORDERED: HYDROcodone/APAP 5/325 MG 1 TAB TAB PO PRN (11:50)
[2023-05-12] MEDS: NACL 0.9% 1,000 ML IV SCH ×2 (11:50→17:00)
[2023-05-12] MEDS ORDERED: ONDANSETRON 4 MG/2 ML VIAL IVP PRN (11:50)
[2023-05-12] MEDS ORDERED: ACETAMINOPHEN 325 MG TAB PO PRN (11:50)
[2023-05-12 12:05] LABS: BASOPHILS % (AUTO) 0.2 % (0.0-2.0); HEMOGLOBIN 10.5 g/dL (12.0-18.0); LYMPHOCYTES # (AUTO) 0.7 K/uL (2.0-11.5); LYMPHOCYTES % (AUTO) 4.5 % (20.5-51.1); MEAN CORPUSCULAR HEMOGLOBIN 26 pg (27-31); MEAN CORPUSCULAR HGB CONC 33 g/dL (33-37); MEAN CORPUSCULAR VOLUME 80.1 fL (80-94); MONOCYTES # (AUTO) 1.7 K/uL (0.8-1.0); MONOCYTES % (AUTO) 11.4 % (1.7-9.3); NEUTROPHILS # (AUTO) 12.2 K/uL (1.8-7.7); NEUTROPHILS % (AUTO) 83.9 % (42.2-75.2); PLATELET COUNT (AUTO) 166 K/uL (140-450); RED BLOOD CELL COUNT(AUTO) 3.99 MIL/uL (4.20-6.10); RED CELL DISTRIBUTION WIDTH 15.4 % (11.6-13.7); WHITE BLOOD COUNT (AUTO) 14.6 K/uL (4.8-10.8)
[2023-05-12] MEDS ORDERED: XAR10 PO (12:34)
[2023-05-12] MEDS ORDERED: cefTRIAXone 1,000 MG VIAL ONE (12:51)
[2023-05-12] MEDS ORDERED: AZITHROMYCIN 500 MG INJ VIAL IV ONE (12:51)
[2023-05-12 14:00] VITALS: PULSE 96; RESP 18; O2SAT 92
[2023-05-12 19:00] VITALS: PULSE 96; RESP 18; O2SAT 94
[2023-05-12 20:00] VITALS: BP 106/59; PULSE 114; RESP 18; TEMP 99.8; O2SAT 91
[2023-05-13 04:00] VITALS: BP 110/61; PULSE 105; RESP 18; TEMP 97.9; O2SAT 92
[2023-05-13 06:24] LABS: BASOPHILS % (AUTO) 0.3 % (0.0-2.0); EOSINOPHILS % (AUTO) 0.3 % (0.0-4.0); HEMOGLOBIN 10.2 g/dL (12.0-18.0); LYMPHOCYTES # (AUTO) 1.3 K/uL (2.0-11.5); LYMPHOCYTES % (AUTO) 13.1 % (20.5-51.1); MEAN CORPUSCULAR HEMOGLOBIN 26 pg (27-31); MEAN CORPUSCULAR HGB CONC 33 g/dL (33-37); MONOCYTES # (AUTO) 0.9 K/uL (0.8-1.0); NEUTROPHILS # (AUTO) 7.7 K/uL (1.8-7.7); NEUTROPHILS % (AUTO) 77.3 % (42.2-75.2); PLATELET COUNT (AUTO) 172 K/uL (140-450); RED BLOOD CELL COUNT(AUTO) 3.88 MIL/uL (4.20-6.10); RED CELL DISTRIBUTION WIDTH 15.7 % (11.6-13.7); WHITE BLOOD COUNT (AUTO) 9.9 K/uL (4.8-10.8)
[2023-05-13 06:51] LABS: ANION GAP 13.6 (8-16); CALCIUM 8.8 mg/dL (8.5-10.1); CARBON DIOXIDE 27.7 mmol/L (21-32); CREATININE 0.8 mg/dL (0.6-1.3); POTASSIUM 4.3 mmol/L (3.5-5.1)
[2023-05-13 08:40] VITALS: BP 121/70; PULSE 103; RESP 18; TEMP 97.5; O2SAT 93
[2023-05-13 08:44] VITALS: PULSE 103; RESP 18; O2SAT 93
[2023-05-13] MEDS ORDERED: bisacodyL 10 MG SUPP RC PRN (10:05)
[2023-05-13] MEDS: AZITHROMYCIN 500 MG in DEXTROSE 5% 250 ML IV SCH (11:08)
[2023-05-13] MEDS ORDERED: NUTRITIONAL SUPPLEMENT GT SCH (13:00)
[2023-05-13 16:26] VITALS: BP 111/70; PULSE 66; RESP 18; TEMP 97.9; O2SAT 95
[2023-05-13 20:00] VITALS: BP 110/64; PULSE 94; RESP 18; TEMP 97.4; O2SAT 95
[2023-05-14 04:00] VITALS: BP 117/65; PULSE 85; RESP 18; TEMP 97.8; O2SAT 96
[2023-05-14] MEDS: NACL 0.9% 1,000 ML IV SCH (04:16)
[2023-05-14] MEDS ORDERED: LEVOTHYROXINE 0.1 MG TAB GT SCH (06:30)
[2023-05-14 06:47] LABS: BASOPHILS % (AUTO) 0.7 % (0.0-2.0); EOSINOPHILS # (AUTO) 0.2 K/uL (0-0.4); EOSINOPHILS % (AUTO) 3.4 % (0.0-4.0); HEMATOCRIT 31.1 % (36-52); HEMOGLOBIN 10.1 g/dL (12.0-18.0); LYMPHOCYTES # (AUTO) 0.9 K/uL (2.0-11.5); LYMPHOCYTES % (AUTO) 16.3 % (20.5-51.1); MEAN CORPUSCULAR HEMOGLOBIN 26 pg (27-31); MEAN CORPUSCULAR HGB CONC 33 g/dL (33-37); MEAN CORPUSCULAR VOLUME 80.3 fL (80-94); MONOCYTES # (AUTO) 0.6 K/uL (0.8-1.0); MONOCYTES % (AUTO) 10.4 % (1.7-9.3); NEUTROPHILS # (AUTO) 3.7 K/uL (1.8-7.7); NEUTROPHILS % (AUTO) 69.2 % (42.2-75.2); PLATELET COUNT (AUTO) 173 K/uL (140-450); RED BLOOD CELL COUNT(AUTO) 3.87 MIL/uL (4.20-6.10); RED CELL DISTRIBUTION WIDTH 15.2 % (11.6-13.7); WHITE BLOOD COUNT (AUTO) 5.3 K/uL (4.8-10.8)
[2023-05-14 07:11] LABS: ANION GAP 10.8 (8-16); CALCIUM 8.7 mg/dL (8.5-10.1); CREATININE 0.7 mg/dL (0.6-1.3); POTASSIUM 3.8 mmol/L (3.5-5.1)
[2023-05-14 08:56] VITALS: BP 117/72; PULSE 86; RESP 18; TEMP 96.9; O2SAT 94
[2023-05-14] MEDS ORDERED: MULTIVITAMIN/MINERALS 15 ML UDBTL GT SCH (09:00)
[2023-05-14] MEDS ORDERED: RIVAROXABAN 10 MG TAB GT SCH (09:00)
[2023-05-14] MEDS ORDERED: FERROUS GLUC GT SCH (09:00)
[2023-05-14] MEDS ORDERED: [UNRECOGNIZED DRUG - OTHER] GT SCH (09:00)
[2023-05-14] MEDS ORDERED: ASCORBIC ACID 500 MG TAB PO SCH (09:00)
[2023-05-14] MEDS ORDERED: ZINC SULF 220 MG CAP PO SCH (09:00)
[2023-05-14] MEDS ORDERED: MULTIVIT MINERALS GT SCH (09:00)
[2023-05-14 09:16] VITALS: PULSE 86; RESP 18; O2SAT 92
[2023-05-14] MEDS: AZITHROMYCIN 500 MG in DEXTROSE 5% 250 ML IV SCH (12:02)
[2023-05-14 12:53] VITALS: BP 117/72; PULSE 86; RESP 18; TEMP 96.9
[2023-05-14 16:27] VITALS: BP 118/74; PULSE 82; RESP 18; TEMP 96.9; O2SAT 93
[2023-05-15] MEDS ORDERED: POLYETHYLENE GLYCOL 17 GM/PKT GT SCH (09:00)
== END 2023-05-14 17:45 | disposition home or self-care (01) | DRG 133 ==
LOC: MED 09:22 → MTU 11:50
PROVIDERS: ADMIT Family Medicine; ATTEND Family Medicine
DX: J96.01 Acute respiratory failure with hypoxia (principal); N17.0 Acute kidney failure with tubular necrosis; J69.0 Pneumonitis due to inhalation of food and vomit; G82.50 Quadriplegia, unspecified; E43 Unspecified severe protein-calorie malnutrition; R65.10 Systemic inflammatory response syndrome (SIRS) of non-infectious origin without acute organ dysfunction; Z20.822 Contact with and (suspected) exposure to COVID-19; E03.9 Hypothyroidism, unspecified; E11.9 Type 2 diabetes mellitus without complications; K21.9 Gastro-esophageal reflux disease without esophagitis; N39.0 Urinary tract infection, site not specified; R13.10 Dysphagia, unspecified; Z79.899 Other long term (current) drug therapy; Z68.23 Body mass index [BMI] 23.0-23.9, adult; Z88.8 Allergy status to other drugs, medicaments and biological substances
CPT/HCPCS: 36415; 36600; 71045; 76881; 80048; 80076; 81001; 82803; 83605; 83880; 84484; 85025; 87040; 87081; 87086; 87420; 93005; 96374; 99285; J0456; J0696; J7060; Q0092

== ENCOUNTER 2024-02-01 18:26 | Inpatient (IN) | payer OTHER, MEDICARE ==
[~2024-02-01] VITALS: Ht 167.6 cm; Wt 72.1 kg
[~2024-02-01 18:26] MED LIST changes: +XAR10 PO
[2024-02-01 18:39] VITALS: BP 118/86; PULSE 99; RESP 18; TEMP 98; O2SAT 99
[2024-02-01] MEDS ORDERED: cefTRIAXone 1,000 MG VIAL ONE (19:24)
[2024-02-01 19:30] LABS: BASOPHILS % (AUTO) 0.2 % (0.0-2.0); EOSINOPHILS # (AUTO) 0.2 K/uL (0-0.4); EOSINOPHILS % (AUTO) 1.7 % (0.0-4.0); HEMATOCRIT 38.5 % (36-52); HEMOGLOBIN 12.4 g/dL (12.0-18.0); LYMPHOCYTES # (AUTO) 1.2 K/uL (2.0-11.5); LYMPHOCYTES % (AUTO) 11.8 % (20.5-51.1); MEAN CORPUSCULAR HEMOGLOBIN 26 pg (27-31); MEAN CORPUSCULAR HGB CONC 32 g/dL (33-37); MEAN CORPUSCULAR VOLUME 80.9 fL (80-94); MONOCYTES # (AUTO) 0.7 K/uL (0.8-1.0); MONOCYTES % (AUTO) 6.8 % (1.7-9.3); NEUTROPHILS % (AUTO) 79.5 % (42.2-75.2); PLATELET COUNT (AUTO) 224 K/uL (140-450); RED BLOOD CELL COUNT(AUTO) 4.76 MIL/uL (4.20-6.10); WHITE BLOOD COUNT (AUTO) 10.1 K/uL (4.8-10.8)
[2024-02-01 19:46] LABS: FLU A ANTIGEN negative (NEGATIVE); FLU B ANTIGEN NEGATIVE (NEGATIVE)
[2024-02-01] MEDS: cefTRIAXone 1,000 MG in DEXT 5% MINI-BAG PLUS 50 ML IV ONE (19:49)
[2024-02-01] MEDS: NACL 0.9% 1,000 ML IV SCH (19:49)
[2024-02-01 19:51] LABS: ANION GAP 8.2 (8-16); CREATININE 0.8 mg/dL (0.6-1.3); POTASSIUM 4.2 mmol/L (3.5-5.1)
[2024-02-01 20:05] LABS: APPEARANCE,URINE CLEAR (CLEAR); BILIRUBIN,URINE NEGATIVE (NEGATIVE); BLOOD, URINE NEGATIVE (NEGATIVE); COLOR,URINE YELLOW (YELLOW); LEUKOCYTE ESTERASE ,URINE NEGATIVE (NEGATIVE); NITRITE, URINE NEGATIVE (NEGATIVE); PH,URINE 7.5 (5.0-9.0); PROTEIN,URINE NEGATIVE (NEGATIVE); UGLUCOSE NEGATIVE (NEGATIVE); UROBILINOGEN,URINE 0.2 EU/dL (0.2 - 1)
[2024-02-01 20:06] LABS: LACTIC ACID 1.4 mmol/L (0.4-2.0)
[2024-02-01] MEDS: NACL 0.9% 1,000 ML IV ONE (20:16)
[2024-02-01] MEDS ORDERED: LORazepam 1 MG TAB PO PRN (21:10)
[2024-02-01] MEDS ORDERED: ONDANSETRON 4 MG/2 ML VIAL IVP PRN (21:10)
[2024-02-01] MEDS ORDERED: ACETAMINOPHEN 325 MG TAB PO PRN (21:10)
[2024-02-01] MEDS ORDERED: MAGNESIUM HYDROXIDE 2400 MG/30 ML UDC GT SCH (21:15)
[2024-02-01] MEDS ORDERED: ACETAMINOPHEN 325 MG TAB GT PRN (21:15)
[2024-02-01 21:40] VITALS: PULSE 111; RESP 17; O2SAT 92
[2024-02-02] VITALS: BP 119/68; PULSE 111; RESP 20; TEMP 97.4; O2SAT 95
[2024-02-02 04:00] VITALS: BP 118/73; PULSE 89; RESP 17; TEMP 96.8; O2SAT 95
[2024-02-02 05:08] LABS: EOSINOPHILS # (AUTO) 0.2 K/uL (0-0.4); HEMOGLOBIN 11.1 g/dL (12.0-18.0); MEAN CORPUSCULAR HEMOGLOBIN 27 pg (27-31); MONOCYTES # (AUTO) 0.7 K/uL (0.8-1.0)
[2024-02-02 05:16] LABS: ANION GAP 8.9 (8-16); BASOPHILS % (AUTO) 0.5 % (0.0-2.0); CALCIUM 8.6 mg/dL (8.5-10.1); CARBON DIOXIDE 29.1 mmol/L (21-32); CREATININE 0.7 mg/dL (0.6-1.3); EOSINOPHILS % (AUTO) 2.3 % (0.0-4.0); HEMATOCRIT 33.9 % (36-52); LYMPHOCYTES # (AUTO) 1.3 K/uL (2.0-11.5); MEAN CORPUSCULAR HGB CONC 33 g/dL (33-37); MEAN CORPUSCULAR VOLUME 81.7 fL (80-94); MONOCYTES % (AUTO) 7.7 % (1.7-9.3); NEUTROPHILS # (AUTO) 6.4 K/uL (1.8-7.7); NEUTROPHILS % (AUTO) 74.5 % (42.2-75.2); PLATELET COUNT (AUTO) 181 K/uL (140-450); RED BLOOD CELL COUNT(AUTO) 4.15 MIL/uL (4.20-6.10); RED CELL DISTRIBUTION WIDTH 16.4 % (11.6-13.7); WHITE BLOOD COUNT (AUTO) 8.6 K/uL (4.8-10.8)
[2024-02-02] MEDS: DEXT 5% / NACL 0.45% 1,000 ML IV SCH (05:35)
[2024-02-02 08:00] VITALS: BP 91/54; PULSE 99; RESP 19; TEMP 97.7; O2SAT 100
[2024-02-02] MEDS: MIDODRINE 5 MG TAB ONE (08:56)
[2024-02-02] MEDS: METOCLOPRAMIDE 10 MG TAB GT SCH (08:56)
[2024-02-02] MEDS: ASCORBIC ACID 500 MG TAB PO SCH (08:56)
[2024-02-02] MEDS: LEVOTHYROXINE 0.1 MG TAB GT SCH (08:56)
[2024-02-02] MEDS: bisacodyL 10 MG SUPP RC SCH (08:56)
[2024-02-02] MEDS: DOCUSATE SODIUM 100 MG GELCAP PO SCH (08:59)
[2024-02-02] MEDS: RIVAROXABAN 10 MG TAB GT SCH (08:59)
[2024-02-02] MEDS: PANTOPRAZOLE 40 MG INJ VIAL IVP SCH (08:59)
[2024-02-02] MEDS: MIDODRINE 5 MG TAB PO SCH (09:00)
[2024-02-02 16:00] VITALS: BP 102/42; PULSE 85; RESP 18; TEMP 97; O2SAT 97
[2024-02-02 20:00] VITALS: BP 117/64; PULSE 82; RESP 17; TEMP 98.2; O2SAT 94
[2024-02-03] MEDS: AMPICILLIN/SULBACTAM 3 GM VIAL ONE ×2 (00:07→05:38)
[2024-02-03] MEDS: AMPICILLIN/SULBACTAM 3 GM in NACL 0.9% 100 ML IV SCH (00:08)
[2024-02-03 04:00] VITALS: BP 95/54; PULSE 93; RESP 17; TEMP 97.7; O2SAT 100
[2024-02-03 05:32] LABS: BASOPHILS % (AUTO) 0.5 % (0.0-2.0); EOSINOPHILS # (AUTO) 0.2 K/uL (0-0.4); EOSINOPHILS % (AUTO) 3.1 % (0.0-4.0); HEMATOCRIT 31.1 % (36-52); HEMOGLOBIN 10.1 g/dL (12.0-18.0); LYMPHOCYTES # (AUTO) 1.3 K/uL (2.0-11.5); MEAN CORPUSCULAR HEMOGLOBIN 26 pg (27-31); MEAN CORPUSCULAR HGB CONC 33 g/dL (33-37); MEAN CORPUSCULAR VOLUME 80.3 fL (80-94); MONOCYTES # (AUTO) 0.5 K/uL (0.8-1.0); MONOCYTES % (AUTO) 7.2 % (1.7-9.3); NEUTROPHILS # (AUTO) 4.8 K/uL (1.8-7.7); NEUTROPHILS % (AUTO) 70.2 % (42.2-75.2); PLATELET COUNT (AUTO) 172 K/uL (140-450); RED BLOOD CELL COUNT(AUTO) 3.87 MIL/uL (4.20-6.10); RED CELL DISTRIBUTION WIDTH 16.4 % (11.6-13.7); WHITE BLOOD COUNT (AUTO) 6.9 K/uL (4.8-10.8)
[2024-02-03 05:49] LABS: ANION GAP 10.5 (8-16); CALCIUM 8.5 mg/dL (8.5-10.1); CARBON DIOXIDE 30.2 mmol/L (21-32); CREATININE 0.6 mg/dL (0.6-1.3); POTASSIUM 3.7 mmol/L (3.5-5.1)
[2024-02-03] MEDS: LEVOTHYROXINE 0.1 MG TAB GT SCH (06:17)
[2024-02-03 08:00] VITALS: BP 109/59; PULSE 101; RESP 20; TEMP 98.8; O2SAT 94; O2SAT 97
[2024-02-03 12:00] VITALS: BP 109/59; PULSE 101; RESP 20; TEMP 98.8; O2SAT 97
[2024-02-03 16:00] VITALS: BP 125/61; PULSE 78; RESP 18; TEMP 99; O2SAT 95
[2024-02-03 20:00] VITALS: BP 127/77; PULSE 101; PULSE 92; RESP 18; RESP 20; TEMP 97.7; O2SAT 94; O2SAT 97
[2024-02-03] MEDS: ZOLPIDEM 5 MG TAB PO PRN (22:31)
[2024-02-04 04:00] VITALS: BP 107/66; PULSE 83; RESP 18; TEMP 97.4; O2SAT 93
[2024-02-04 05:32] LABS: BASOPHILS % (AUTO) 0.5 % (0.0-2.0); EOSINOPHILS # (AUTO) 0.2 K/uL (0-0.4); EOSINOPHILS % (AUTO) 3.3 % (0.0-4.0); HEMATOCRIT 33.4 % (36-52); HEMOGLOBIN 10.9 g/dL (12.0-18.0); MEAN CORPUSCULAR HEMOGLOBIN 26 pg (27-31); MEAN CORPUSCULAR HGB CONC 33 g/dL (33-37); MEAN CORPUSCULAR VOLUME 79.7 fL (80-94); MONOCYTES # (AUTO) 0.5 K/uL (0.8-1.0); MONOCYTES % (AUTO) 6.6 % (1.7-9.3); NEUTROPHILS # (AUTO) 5.8 K/uL (1.8-7.7); NEUTROPHILS % (AUTO) 76.6 % (42.2-75.2); PLATELET COUNT (AUTO) 177 K/uL (140-450); RED BLOOD CELL COUNT(AUTO) 4.19 MIL/uL (4.20-6.10); RED CELL DISTRIBUTION WIDTH 16.5 % (11.6-13.7); WHITE BLOOD COUNT (AUTO) 7.5 K/uL (4.8-10.8)
[2024-02-04 06:01] LABS: ANION GAP 9.2 (8-16); CALCIUM 9.1 mg/dL (8.5-10.1); CARBON DIOXIDE 30.2 mmol/L (21-32); CREATININE 0.7 mg/dL (0.6-1.3); POTASSIUM 3.4 mmol/L (3.5-5.1)
[2024-02-04] MEDS ORDERED: AMOX-999 GT (11:21)
== END 2024-02-04 14:30 | disposition home or self-care (01) | DRG 137 ==
LOC: MED 18:26 → MMU 21:10 → MTU 21:26
PROVIDERS: ADMIT Student in an Organized Health Care Education/Training Program; ATTEND Student in an Organized Health Care Education/Training Program
DX: J15.69 Pneumonia due to other Gram-negative bacteria (principal); G93.41 Metabolic encephalopathy; E44.0 Moderate protein-calorie malnutrition; E11.9 Type 2 diabetes mellitus without complications; R71.0 Precipitous drop in hematocrit; J15.9 Unspecified bacterial pneumonia; F79 Unspecified intellectual disabilities; Z20.822 Contact with and (suspected) exposure to COVID-19; K21.9 Gastro-esophageal reflux disease without esophagitis; Z74.01 Bed confinement status; Z79.899 Other long term (current) drug therapy; Z88.8 Allergy status to other drugs, medicaments and biological substances; Z68.25 Body mass index [BMI] 25.0-25.9, adult
CPT/HCPCS: 36415; 71045; 80048; 81003; 83605; 83880; 84484; 85025; 87040; 87081; 87086; 93005; 96361; 96365; 99285; J0295; J0696; J2470; J8597; Q0092